=== PATIENT | male | born 1975 | race African-American/Black ===

== ENCOUNTER 2017-10-24 18:24 | Emergency (ER) | payer SELFPAY | END 2017-10-24 20:23 | disposition home or self-care (01) | LOC: ERS 18:24 | DX: S16.1XXA Strain of muscle, fascia and tendon at neck level, initial encounter (principal); V43.52XA Car driver injured in collision with other type car in traffic accident, initial encounter | CPT/HCPCS: 99283 ==

== ENCOUNTER 2018-06-22 03:51 | Emergency (ER) | payer OTHER, SELFPAY ==
[2018-06-22] MEDS ORDERED: Lidocaine 1% PF 5 ML VIAL ONE ×2 (04:17→04:48)
[2018-06-22] MEDS ORDERED: Adacel (T-DAP) 0.5 ML VIAL ONE (04:46)
[2018-06-22] MEDS ORDERED: Bacitracin Zinc 1 Packet ONE (05:17)
[2018-06-22] MEDS ORDERED: Cephalexin 250 MG CAP ONE (05:42)
== END 2018-06-22 05:46 | disposition home or self-care (01) ==
LOC: ERS 03:51
DX: S61.412A Laceration without foreign body of left hand, initial encounter (principal); W26.8XXA Contact with other sharp object(s), not elsewhere classified, initial encounter
CPT/HCPCS: 12002; 90471; 90715; J2001

== ENCOUNTER 2019-01-22 18:46 | Emergency (ER) | payer SELFPAY ==
[2019-01-22 19:18] LABS: Amphetamine Not Detected (NotDetected); Barbiturates Screen Not Detected (NotDetected); Benzodiazepine Screen Not Detected (NotDetected); Cocaine Metabolite Screen Not Detected (NotDetected); Medtox Control Line Valid? VALID (VALID); Medtox Reader # READER 4; Methadone Not Detected (NotDetected); Methamphetamine Not Detected (NotDetected); Opiate Screen Not Detected (NotDetected); Oxycodone Screen Not Detected (NotDetected); Phencyclidine (PCP) Not Detected (NotDetected); THC/Cannabinoid Screen Not Detected (NotDetected); Tricyclic Screen Not Detected (NotDetected)
[2019-01-22] MEDS ORDERED: Lidocaine 1% (PF) 30 ML VIAL ONE (20:56)
--- NOTE | 2019-01-22 21:11 | CT ---
CT OF BRAIN PERFORMED WITHOUT CONTRAST ENHANCEMENT: 01/22/19 HISTORY: Head injury. The ventricular and cisternal system is within normal limits. There is no signs of intracerebral hemo rrhage or extra-axial fluid collections. Mastoid air cells and visualized sinuses appear clear. IMPRESSION: No acute intracranial abnormalities. POS: MOE
[2019-01-22] MEDS ORDERED: Bacitracin Zinc 1 Packet ONE (21:32)
--- NOTE | 2019-01-22 21:45 | CT ---
CT OF CERVICAL SPINE PERFORMED WITHOUT CONTRAST ENHANCEMENT: 01/22/19 HISTORY: Neck injury. Vertebral bodies are normal in height. Disc spaces are well preserved and the facets are all in gabriella l alignment. There is no evidence of any canal or foraminal stenosis. There is no CT evidence for fra cture. Lung apices are clear. IMPRESSION: No CT evidence of fracture of the cervical spine. POS: MOE
== END 2019-01-22 22:00 | disposition home or self-care (01) ==
LOC: ERS 18:46
DX: S21.112A Laceration without foreign body of left front wall of thorax without penetration into thoracic cavity, initial encounter (principal); S01.81XA Laceration without foreign body of other part of head, initial encounter; F10.129 Alcohol abuse with intoxication, unspecified; Y04.0XXA Assault by unarmed brawl or fight, initial encounter
CPT/HCPCS: 12001; 12011; 70450; 72125; 80306; 96360; 96361; J2001

== ENCOUNTER 2020-09-17 21:26 | Inpatient (IN) | payer SELFPAY ==
[~2020-09-17 21:26] MED LIST: Iopamidol-370 76% 500 ML 1 ML ONE
--- NOTE | 2020-09-17 22:02 | RAD ---
EXAM: CHEST ONE VIEW HISTORY: Chest pain. Anemia. COMPARISON: 09/11/2017 FINDINGS: The cardiac silhouette and pulmonary vasculature are within normal limits. The lungs are clear. Mild left convex curvature thoracic spine is present which is stable compared to prior exam. IMPRESSION: No acute cardiopulmonary process.
[2020-09-17 22:27] LABS: Hemoglobin 14.5 g/dL (14.0-18.0); Mean Corpuscular Hemoglobin 33.3 pg (27.0-31.0); Red Blood Cell (RBC) Count 4.35 mill/uL (4.70-6.10); White Blood Cell (WBC) Count 3.5 thou/uL (4.8-10.8)
[2020-09-17 22:34] LABS: ALT (SGPT) 49 U/L (8-55); AST (SGOT) 148 U/L (5-34); Albumin 3.9 g/dL (3.5-5.0); Alkaline Phosphatase 108 U/L (40-110); Anion Gap 18 mmol/L (10-20); BUN (Urea Nitrogen) 5 mg/dL (8.9-20.6); Bilirubin, Total 0.7 mg/dL (0.2-1.2); Calc. Creatinine Clearance 0 mL/min (70-130); Calcium 8.8 mg/dL (7.8-10.44); Carbon Dioxide 26 mmol/L (22-29); Chloride 101 mmol/L (98-107); Estimated GFR-MDRD Greater than 90; Glucose 92 mg/dL (70-105); Lipase 28 U/L (8-78); Potassium 4.1 mmol/L (3.5-5.1); Protein, Total 7.9 g/dL (6.0-8.3); Sodium 141 mmol/L (136-145)
[2020-09-17 22:41] LABS: #Basophils 0.1 thou/uL (0.0-0.2); #Lymphocytes 1.5 thou/uL (1.20-3.40); #Monocytes 0.3 thou/uL (0.11-0.59); #Neutrophils 1.6 thou/uL (1.40-6.50); %Basophils 2.7 % (0.0-1.0); %Eosinophils 0.4 % (0.0-10.0); %Lymphocytes 42.2 % (21.0-51.0); %Monocytes 8.9 % (0.0-10.0); %Neutrophils 45.9 % (42.0-75.0); Mean Platelet Volume 8.5 fL (7.4-10.4); Platelet Count 111 thou/uL (130-400); Platelet Morphology Comment Appears Decreased
[2020-09-17] MEDS ORDERED: Lidocaine Viscous Sol 2% 15 ml UD Cup ONE (23:19)
[2020-09-17] MEDS ORDERED: Mag-Al 1200 mg/1200 mg/30 ML UDCUP ONE (23:19)
--- NOTE | 2020-09-17 23:52 | CT ---
CT ANGIOGRAM THORAX WITH IV CONTRAST AND 3-D RECONSTRUCTIONS CLINICAL INDICATION: Chest pain and tachycardia. COMPARISON: None FINDINGS: Pulmonary arteries: No filling defects are seen in the pulmonary arteries to suggest a pulmonary embo russ. Aorta: The aorta is normal in caliber without evidence of an aortic dissection. Lungs: Clear without evidence of consolidation or pleural effusion. Mediastinum: There is no evidence of lymphadenopathy. Heart is at the upper limits of normal in size. Thyroid gland: Very tiny subcentimeter nodules left lobe of thyroid gland. Small to characterize. Osseous structures: No suspicious lytic or sclerotic osseous lesion. Chest wall: No abnormality visualized. Upper abdomen: Within normal limits for phase of imaging. IMPRESSION: 1. No CT evidence of a pulmonary embolus.
--- NOTE | 2020-09-18 01:39 | PDOC.HHP ---
Hospitalist HPI - History of Present Illness Chest pain History of Present Illness: Mr. Sanchez is a 45-year-old male with a past medical history of anemia, chronic GI bleeding who presents to the emergency room for chest pain. Patient reports that over the past week he has had intermittent chest pain. Describes the pain as a squeezing feeling that lasts a few minutes then disappears. Has noticed that his chest pain is worse when he exerts himself and improves with rest. He denies any shortness of breath, dizziness lightheadedness or vision changes during these episodes. He has never had any episodes like this before. He has no cardiac history, but does have a family history of heart disease in his aunts and uncles who have pacemakers. No heart disease in his parents. He denies any known exposure to Covid. In emergency room initial vital signs 120/84, 96, 114, 20, 99% on room air, 98.9. EKG showed normal sinus rhythm with nonspecific T wave inversions. Initial troponin 0 0.019. BNP 87.9. H/H 14.5/42.6, WBC 3.5. BUN/CR 5/0.79. Chest x-ray with no acute findings. Patient did undergo CT a chest which did not show any acute abnormalities or any evidence of pulmonary embolism. Patient received 325 mg of aspirin, sublingual nitro x3, and GI cocktail. Hospitalist ROS - Review of Systems Constitutional: denies: fever, chills, sweats, weakness, malaise, other Eyes: denies: pain, vision change, conjunctivae inflammation, eyelid inflammation, redness, other ENT: denies: ear pain, ear discharge, nose pain, nose discharge, nose congestion, mouth pain, mouth swelling, throat pain, throat swelling, other Respiratory: denies: cough, dry, shortness of breath, hemoptysis, SOB with excertion, pleuritic pain, sputum, wheezing, other Cardiovascular: reports: chest pain. denies: palpitations, orthopnea, paroxysmal noc. dyspnea, edema, light headedness, other Gastrointestinal: denies: nausea, vomiting, abdominal pain, diarrhea, constipation, melena, hematochezia, other Genitourinary: denies: dysuria, frequency, incontinence, hematuria, retention, other Musculoskeletal: denies: neck pain, shoulder pain, arm pain, back pain, hand pain, leg pain, foot pain, other Skin: denies: rash, lesions, osmani, bruising, other Neurological: denies: weakness, numbness, incoordination, change in speech, confusion, seizures, other - Medication Medications: Patient takes home iron supplements No known allergies Hospitalist History - Past Medical History Other Medical History: Past medical history includes Anemia GI bleedingpatient reports this is chronic and has had 2 colonoscopies - Past Surgical History Other Surgical History: No past surgical history - Family History Other Family History: Family history significant for father with colon cancer Uncle with cardiac disease - Social History Smoking Status: Never smoker Alcohol: reports: Occassional Drugs: reports: none (Patient denies drug use, however does report that his urine was once positive for cocaine) Living Situation: With Family Activity level: independent ambulation - Exam General Appearance: NAD, awake alert Eye: PERRL, anicteric sclera ENT: normocephalic atraumatic, no oropharyngeal lesions, moist mucosa Neck: supple, symmetric, no JVD, no thyromegaly, no lymphadenopathy, no carotid bruit Heart: RRR, no murmur, no gallops, no rubs, normal peripheral pulses Respiratory: CTAB, no wheezes, no rales, no ronchi, normal chest expansion, no tachypnea, normal percussion Gastrointestinal: soft, non-tender, non-distended, normal bowel sounds, no palpable masses, no hepatomegaly, no splenomegaly, no bruit Extremities: no cyanosis, no clubbing, no edema Skin: normal turgor, no lesions, no rashes Neurological: cranial nerve grossly intact, normal sensation to touch, no weakness, no focal deficits, no new deficit Musculoskeletal: normal tone, normal strength, no muscle wasting Psychiatric: normal affect, normal behavior, A&O x 3 Hospitalist Results - Labs Result Diagrams: 09/17/20 22:04 09/17/20 22:04 Lab results: WBC 3.5 thou/uL (4.8-10.8) L 09/17/20 22:04 Hgb 14.5 g/dL (14.0-18.0) 09/17/20 22:04 Hct 42.6 % (42.0-52.0) 09/17/20 22:04 MCV 98.0 fL (78.0-98.0) 09/17/20 22:04 Plt Count 111 thou/uL (130-400) L 09/17/20 22:04 Neutrophils % 45.9 % (42.0-75.0) 09/17/20 22:04 Sodium 141 mmol/L (136-145) 09/17/20 22:04 Potassium 4.1 mmol/L (3.5-5.1) 09/17/20 22:04 Chloride 101 mmol/L (98-107) 09/17/20 22:04 Carbon Dioxide 26 mmol/L (22-29) 09/17/20 22:04 BUN 5 mg/dL (8.9-20.6) L 09/17/20 22:04 Creatinine 0.79 mg/dL (0.7-1.3) 09/17/20 22:04 Glucose 92 mg/dL (70-105) 09/17/20 22:04 Calcium 8.8 mg/dL (7.8-10.44) 09/17/20 22:04 Total Bilirubin 0.7 mg/dL (0.2-1.2) 09/17/20 22:04 AST 148 U/L (5-34) H 09/17/20 22:04 ALT 49 U/L (8-55) 09/17/20 22:04 Alkaline Phosphatase 108 U/L (40-110) 09/17/20 22:04 Troponin I 0.019 ng/mL (< 0.028) 09/17/20 22:04 B-Natriuretic Peptide 87.9 pg/mL (0-100) 09/17/20 22:04 Serum Total Protein 7.9 g/dL (6.0-8.3) 09/17/20 22:04 Albumin 3.9 g/dL (3.5-5.0) 09/17/20 22:04 Lipase 28 U/L (8-78) 09/17/20 22:04 Hospitalist H&P A/P - Plan Plan: Chest pain 45-year-old male with possible history of anemia who presents with 1 week of intermittent chest pain lasting minutes. EKG with T wave inversions. Initial troponin 0 0.019. CTA chest negative for pulmonary embolism. Patient received 325mg of aspirin in the emergency room along with a GI cocktail and nitro. Patient reports that the GI cocktail mildly improved his symptoms. Denies any chest pain on my exam. Will admit for chest pain rule out. Plan Trend troponin ASA, nitro as needed Telemetry monitoring TSH, magnesium N.p.o., consider stress testing Urine tox screen Lipid panel, hemoglobin A1c History of anemia Patient reports history of iron deficiency anemia, along with chronic GI bleeding.he has undergone 2 colonoscopies previously for. Patient reports his stools are sometimes dark sometimes with streaks of bright red blood. Has seen a GI doctor for this. H&H on presentation stable at 14.5/42.6. Patient however currently does not have a primary care provider. Recommended the patient seek care at the [facility] since he is uninsured. Plan Outpatient follow-up with [facility] DVT prophylaxisSCDs Full code Case discussed with attending physician Dr. Srinivasan.
[2020-09-18 01:40] LABS: Troponin I 0.033 ng/mL (< 0.028)
[2020-09-18] MEDS ORDERED: Nitroglycerin 0.4 MG TAB (25 Tab Bottle) SL PRN (01:47)
[2020-09-18 04:53] LABS: Hemoglobin A1c 4.9 % (4.0-6.0)
[2020-09-18 05:07] LABS: Cardiac Risk 1.8 (Less than 4.5)
[2020-09-18 05:11] LABS: Troponin I 0.027 ng/mL (< 0.028)
[2020-09-18] MEDS ORDERED: Aspirin Chewable 81 MG TAB ONE (09:17)
[2020-09-18] MEDS: Aspirin 81 mg Enteric Coated Tablet PO SCH (09:24)
[2020-09-18 15:32] LABS: SARS-CoV-2 MS2 Positive; SARS-CoV-2 N Gene Negative; SARS-CoV-2 S Gene Negative; SARS-CoV-2 by NAA Not Detected (NotDetected); SARS-CoV-2 orf1ab Negative
--- NOTE | 2020-09-18 16:54 | PDOC.BPN ---
- Brief Progress Note Encounter Date: 09/18/20 Encounter Time: 16:52 Ms. Sanchez is a 45-year-old patient who presented to the hospital with chest pain. There was some concern that he has acute coronary syndrome and he was hospitalized for further treatment. Apparently there is a very strong family history of coronary disease with his mother and uncle both having some heart issues. He was unable to recall the age that there is a 5-day OH event. At any rate he is admitted to the hospital for further evaluation. At the minimum we will get a Cardiolite stress test. Should he rule out he can safely be discharged tomorrow. Consider cardiology consultation if the stress test was abnormal.
[2020-09-18 17:36] VITALS: BMI 17.2
[2020-09-18 23:13] LABS: Amphetamine Not Detected (NotDetected); Barbiturates Screen Not Detected (NotDetected); Benzodiazepine Screen Not Detected (NotDetected); Cocaine Metabolite Screen Detected (NotDetected); Medtox Control Line Valid? VALID (VALID); Medtox Reader # READER 4; Methadone Not Detected (NotDetected); Methamphetamine Not Detected (NotDetected); Opiate Screen Not Detected (NotDetected); Oxycodone Screen Not Detected (NotDetected); Phencyclidine (PCP) Not Detected (NotDetected); THC/Cannabinoid Screen Not Detected (NotDetected); Tricyclic Screen Not Detected (NotDetected)
[2020-09-19 04:16] LABS: Anion Gap 14 mmol/L (10-20); BUN (Urea Nitrogen) 7 mg/dL (8.9-20.6); Calc. Creatinine Clearance 105 mL/min (70-130); Calcium 8.9 mg/dL (7.8-10.44); Carbon Dioxide 26 mmol/L (22-29); Chloride 102 mmol/L (98-107); Estimated GFR-MDRD Greater than 90; Glucose 99 mg/dL (70-105); Potassium 3.8 mmol/L (3.5-5.1); Sodium 138 mmol/L (136-145)
[2020-09-19 04:46] LABS: Band 2 % (5-11); Hemoglobin 12.8 g/dL (14.0-18.0); Lymphocytes 42 % (21-51); MDiff Complete? YES; Mean Corpuscular HGB CONC 33.9 g/dL (32.0-36.0); Mean Corpuscular Hemoglobin 33.5 pg (27.0-31.0); Mean Corpuscular Volume 98.9 fL (78.0-98.0); Mean Platelet Volume 10.6 fL (7.4-10.4); Monocytes 4 % (0-10); Neutrophil 52 % (42-75); Platelet Count 63 thou/uL (130-400); Platelet Morphology Comment Appears Decreased; RBC Distribution Width 11.9 % (11.5-14.5); Red Blood Cell (RBC) Count 3.82 mill/uL (4.70-6.10)
[2020-09-19] MEDS: Aspirin 81 mg Enteric Coated Tablet PO SCH (08:45)
[2020-09-19] MEDS ORDERED: ADENOSINE 60 MG/20 ML VIAL ONE (13:12)
--- NOTE | 2020-09-19 13:16 | NM ---
NUCLEAR MEDICINE CARDIAC MYOCARDIAL PERFUSION SPECT EJECTION FRACTION STUDY WALL MOTION CINE: DATE: 09/19/2020 HISTORY: 45-year-old male with family history of coronary artery disease presents with chest pain TECHNIQUE: Number of days: 1 Rest study: Technetium 99m-sestamibi (Cardiolite) dose: 10.1 mCi Pharmacologic stress: Adenosine dose: 31.9 mg Stress study: Technetium 99m-sestamibi (Cardiolite) dose: 27.4 mCi FINDINGS: CARDIAC (MYOCARDIAL PERFUSION) SPECT There are no reversible myocardial perfusion defects. EJECTION FRACTION STUDY Left ventricular EF = 31 % WALL MOTION CINE There is global hypokinesis. There is no focal asymmetric wall motion abnormality. IMPRESSION: 1. No evidence of reversible ischemia. 2. Low left ventricular ejection fraction of 31%.
--- NOTE | 2020-09-19 14:53 | PDOC.HOSPP ---
- Subjective Encounter Date: 09/19/20 Encounter Time: 14:52 Subjective: Mr. Sanchez was seen today in follow-up of chest pain, and also found to be anemic. He says he feels fine. He denies chest pain now. - Objective Vital Signs & Weight: Vital Signs (12 hours) Temp Pulse Resp BP Pulse Ox 09/19/20 12:30 98.9 F 80 18 160/86 H 100 09/19/20 08:20 98.8 F 77 18 157/72 H 100 09/19/20 03:44 98.4 F 65 18 137/77 100 Weight Admit Weight 126 lb 11.2 oz Weight 126 lb 11.2 oz I&O: 09/18/20 09/19/20 09/20/20 06:59 06:59 06:59 Intake Total 387 Balance 387 Result Diagrams: 09/19/20 03:33 09/19/20 03:33 Hospitalist ROS - Medication Medications: Active Medications Generic Name Dose Route Start Last Admin Trade Name Freq PRN Reason Stop Dose Admin Aspirin 81 mg 09/18/20 09:00 09/19/20 08:45 Aspirin 81 Mg Enteric Coated Tablet PO Not Given DAILY FLY - Exam Eye: PERRL, anicteric sclera Heart: RRR, no murmur, no gallops, no rubs, normal peripheral pulses Respiratory: CTAB, no wheezes, no rales, no ronchi, normal chest expansion, no tachypnea, normal percussion Gastrointestinal: soft, non-tender, non-distended, normal bowel sounds, no palpable masses, no hepatomegaly Extremities: no cyanosis, no edema Hosp A/P (1) Chest pain Code(s): R07.9 - CHEST PAIN, UNSPECIFIED Status: Acute (2) Cocaine abuse Code(s): F14.10 - COCAINE ABUSE, UNCOMPLICATED Status: Acute (3) Pancytopenia Code(s): D61.818 - OTHER PANCYTOPENIA Status: Acute (4) GI bleed Code(s): K92.2 - GASTROINTESTINAL HEMORRHAGE, UNSPECIFIED Status: Chronic - Plan * Chest pain- ? etiology . May be related to cocaine abuse * Stress test results noted. He had global hypokinesis, and a low EF- Echo has been ordered * Pancytopneia- ? etiology- will check Hepatitis panel, HIV and B12, Folic acid. He may ultimately need Hematology evaluation and even boen marrow aspirate. * Chronic GI - Bleed- will defer work-up to the out patinet setting given the chronicity of the symptom
[2020-09-19 15:39] LABS: Iron 235 ug/dL (65-175); Iron Binding Capacity, Total 250 mcg/dL (261-462)
[2020-09-19 15:59] LABS: HBCM Index 0.08 S/CO (0-0.79); HBSAg Index 0.26 S/CO (0-0.99); HIV (1/2) Antibody/Antigen Non-Reactive (NonReactive); HIV 1/2 INDEX 0.17 S/CO (<1.00); Hep A IgM AB Non-Reactive (NonReactive); Hep A IgM S/CO 0.18 S/CO (0-0.79); Hep B Surf Ag Non-Reactive S/CO (NonReactive); Hep C IgG Ab Non-Reactive (NonReactive); Hep C Index 0.08 S/CO (0-0.79); Hepatitis B Core IgM Abs Non-Reactive (NonReactive)
[2020-09-19 16:09] LABS: Ferritin 187.49 ng/mL (22-322)
[2020-09-19 16:19] LABS: MONO NEGATIVE CONTROL ZONE White (Negative) (White); MONO POSITIVE CONTROL Pink Line (Positive) (PINK/RED); Mononucleosis NEGATIVE (NEGATIVE)
[2020-09-20] MEDS ORDERED: Communication Order-Pharmacy FS SCH (09:00)
[2020-09-20] MEDS ORDERED: Spironolactone 25 MG TAB PO SCH (09:00)
[2020-09-20] MEDS ORDERED: Carvedilol 6.25 MG TAB PO SCH (09:00)
[2020-09-20] MEDS: Furosemide 20 MG TAB PO SCH (09:30)
[2020-09-20] MEDS: Lisinopril 2.5 MG TAB PO SCH (09:31)
[2020-09-20] MEDS: Aspirin 81 mg Enteric Coated Tablet PO SCH (09:35)
--- NOTE | 2020-09-20 11:54 | CON ---
DATE OF CONSULTATION: HISTORY OF PRESENT ILLNESS: Rhonda Sanchez is a 45-year-old black male, who came to the emergency room on September 17 complaining of one week of intermittent chest pain. He describes this as somewhat of his squeezing is feeling in his chest, that would last only a few seconds. He denied any shortness of breath, nausea, vomiting, or diaphoresis with this. Cardiac enzymes were unremarkable and he underwent Lexiscan Cardiolite testing, which revealed no evidence of ischemia. However, his ejection fraction on the study was 31%. Echocardiogram confirmed his poor ejection fraction. He denies any history of dyspnea on exertion, PND, orthopnea, or leg edema. PAST MEDICAL HISTORY: No history of hypertension, diabetes, or hypercholesterolemia. He does have history of hemorrhoids, continues to have problems with hemorrhoidal bleeding. MEDICATIONS: Ferrous gluconate 240 b.i.d. ALLERGIES: NONE. SOCIAL HISTORY: He does not smoke. He drinks up to two six packs per day, but I suspect he drinks more than that. FAMILY HISTORY: Positive for heart disease. REVIEW OF SYSTEMS: A 10-point review of systems otherwise unremarkable. PHYSICAL EXAMINATION: VITAL SIGNS: Blood pressure 147/92 and pulse 73. HEENT: PERRL. NECK: Supple. CHEST: Clear. CARDIAC: S1 and S2 normal without any S3, S4, or murmurs. Carotid upstroke is normal without bruits. ABDOMEN: Normal bowel sounds without tenderness or organomegaly. EXTREMITIES: Revealed no clubbing, cyanosis, or edema. NEUROLOGIC: Grossly intact. SKIN: Warm and dry. LABORATORY DATA: EKG reveals normal sinus rhythm with anterolateral T-wave inversion. Echocardiogram revealed ejection fraction of 25% to 30% with mild mitral regurgitation and mild tricuspid regurgitation. Hemoglobin 12.8, hematocrit 37.8, white count 3000, and platelets 63,000. Sodium 138, potassium 3.8, chloride 102, carbon dioxide 26, BUN 7, and creatinine 0.74. Iron 235, TIBC 250, and ferritin 187.4. TSH is normal. B12 and folate are normal. Magnesium is normal. Cholesterol 186, triglycerides 93, HDL 105, LDL 62, AST 148, and ALT 49. IMPRESSION: 1. 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 2. Atypical chest discomfort. 3. Positive family history. 4. Possible hypertension with frequent systolics in the 150s-160s since admission. 5. EtOH abuse. 6. Elevated LFTs, probably due to alcohol. 7. Thrombocytopenia, Leukopenia. PLAN: Long detail discussion was held with the patient. He will be started on carvedilol as well as furosemide and probably have addition of KANDICE inhibitor. Without insurance, I doubt that he can afford Entresto. Also, he was instructed that he should never drink alcohol again because this cardiomyopathy certainly may be related to alcohol. Also with his severe left ventricular dysfunction, despite his normal Cardiolite, his coronary anatomy should be known with 100% certainty. Therefore, he will undergo cardiac catheterization in the morning. Risks of this were discussed with the patient including , myocardial infarction, dye reaction, vascular injury, CVA, transfusion, limb loss, renal loss, etc. Also risk of intervention with PTCA and stent placement were discussed including , myocardial infarction, emergent CABG, restenosis, stent thrombosis, vessel perforation, etc. With his continued hemorrhoidal bleeding, I would place a bare-metal stent if needed. We also discussed that if his ejection fraction does not improve, that he probably will need to have a defibrillator placed in 3 months. During the interim, it was recommended that we proceed with trying to get a LifeVest. Job ID: [id number] [facility]PITALMoh[facility]
[2020-09-20 12:43] LABS: Amphetamine Not Detected (NotDetected); Barbiturates Screen Not Detected (NotDetected); Benzodiazepine Screen Not Detected (NotDetected); Cocaine Metabolite Screen Not Detected (NotDetected); Medtox Control Line Valid? VALID (VALID); Medtox Reader # READER 4; Methadone Not Detected (NotDetected); Methamphetamine Not Detected (NotDetected); Opiate Screen Not Detected (NotDetected); Oxycodone Screen Not Detected (NotDetected); Phencyclidine (PCP) Not Detected (NotDetected); THC/Cannabinoid Screen Not Detected (NotDetected); Tricyclic Screen Not Detected (NotDetected)
[2020-09-20 14:02] LABS: #Lymphocytes 0.7 thou/uL (1.20-3.40); #Monocytes 0.4 thou/uL (0.11-0.59); #Neutrophils 1.9 thou/uL (1.40-6.50); %Basophils 0.8 % (0.0-1.0); %Eosinophils 0.6 % (0.0-10.0); %Neutrophils 63.6 % (42.0-75.0); Hemoglobin 15.5 g/dL (14.0-18.0); Mean Corpuscular HGB CONC 33.7 g/dL (32.0-36.0); Mean Corpuscular Hemoglobin 33.5 pg (27.0-31.0); Mean Corpuscular Volume 99.4 fL (78.0-98.0); Mean Platelet Volume 9.4 fL (7.4-10.4); Platelet Count 77 thou/uL (130-400); RBC Distribution Width 11.6 % (11.5-14.5); Red Blood Cell (RBC) Count 4.64 mill/uL (4.70-6.10)
[2020-09-20 14:15] LABS: ALT (SGPT) 84 U/L (8-55); AST (SGOT) 275 U/L (5-34); Albumin 4.1 g/dL (3.5-5.0); Alkaline Phosphatase 108 U/L (40-110); Bilirubin, Direct 0.5 mg/dL (0.1-0.3); Protein, Total 8.1 g/dL (6.0-8.3)
--- NOTE | 2020-09-20 15:22 | PDOC.HOSPP ---
- Subjective Encounter Date: 09/20/20 Encounter Time: 15:21 Subjective: Mr. Sanchez was seen today in follow-up of CHF exacerbation. He does not have any complaints today. He denies feeling short of breath. - Objective Vital Signs & Weight: Vital Signs (12 hours) Temp Pulse Resp BP BP Pulse Ox 09/20/20 12:45 98.4 F 83 16 120/87 100 09/20/20 09:31 73 147/92 H 09/20/20 09:30 147/92 H 09/20/20 08:00 97.9 F 73 16 147/92 H 99 09/20/20 04:00 98.3 F 68 134/76 100 Weight Admit Weight 126 lb 11.2 oz Weight 126 lb 11.2 oz I&O: 09/19/20 09/20/20 09/21/20 06:59 06:59 06:59 Intake Total 387 1170 240 Balance 387 1170 240 Result Diagrams: 09/20/20 13:44 09/19/20 03:33 Hospitalist ROS - Medication Medications: Active Medications Generic Name Dose Route Start Last Admin Trade Name Freq PRN Reason Stop Dose Admin Aspirin 81 mg 09/18/20 09:00 09/20/20 09:35 Aspirin 81 Mg Enteric Coated Tablet PO 81 mg DAILY FLY Administration Furosemide 20 mg 09/20/20 09:00 09/20/20 09:30 Furosemide 20 Mg Tab PO 20 mg DAILY FLY Administration Lisinopril 2.5 mg 09/20/20 09:00 09/20/20 09:31 Lisinopril 2.5 Mg Tab PO 2.5 mg DAILY FLY Administration - Exam Eye: PERRL, anicteric sclera Heart: RRR, no murmur, no gallops, no rubs, normal peripheral pulses Respiratory: CTAB, no wheezes, no rales, no ronchi, normal chest expansion, no tachypnea, normal percussion Gastrointestinal: soft, non-distended Hosp A/P (1) Chest pain Code(s): R07.9 - CHEST PAIN, UNSPECIFIED Status: Acute (2) Cocaine abuse Code(s): F14.10 - COCAINE ABUSE, UNCOMPLICATED Status: Acute (3) Pancytopenia Code(s): D61.818 - OTHER PANCYTOPENIA Status: Acute (4) GI bleed Code(s): K92.2 - GASTROINTESTINAL HEMORRHAGE, UNSPECIFIED Status: Chronic (5) Alcohol abuse Code(s): F10.10 - ALCOHOL ABUSE, UNCOMPLICATED Status: Chronic - Plan * Chest pain- ? etiology . May be related to cocaine abuse * New Systolic heart failure- discussed with the patient- plan is for cardiac cath tomorrow * ETOH abuse- discussed with the patient- he said his last drink was on , before he came into the hospital. He admits to drinking about a 12 pack a day.- Will add an ASE protocol, and add thiamine and folic acid * Pancytopneia- This may be related to alcohol abuse - Hematology input appreciated * Chronic GI -Out patient work-up
[2020-09-20 16:35] LABS: ANA Symphony (Qualitative) Negative (Negative); ANA Symphony (Quantitative) 0.2 Ratio (< 0.7 Negative)
[2020-09-20 17:21] LABS: Anion Gap 13 mmol/L (10-20); BUN (Urea Nitrogen) 10 mg/dL (8.9-20.6); Calc. Creatinine Clearance 90 mL/min (70-130); Calcium 9.9 mg/dL (7.8-10.44); Carbon Dioxide 29 mmol/L (22-29); Chloride 98 mmol/L (98-107); Estimated GFR-MDRD Greater than 90; Glucose 97 mg/dL (70-105); Potassium 3.4 mmol/L (3.5-5.1); Sodium 137 mmol/L (136-145)
[2020-09-20] MEDS: Thiamine 100 MG TAB PO SCH (17:38)
[2020-09-20] MEDS: Carvedilol 3.125 MG TAB PO SCH (17:38)
[2020-09-20] MEDS: Folic Acid 1 MG TAB PO SCH (17:38)
--- NOTE | 2020-09-20 18:59 | CON ---
DATE OF CONSULTATION: REASON FOR CONSULTATION: Leukopenia and thrombocytopenia. HISTORY OF PRESENT ILLNESS: A 45-year-old male with history of anemia secondary to chronic GI bleed, presenting to the ER with chest pain and found to have leukopenia and worsening thrombocytopenia. The patient describes intermittent chest pain over the last week, which he had never had before and was worse with exertion and improved with rest. Denies any other problems including recent infections or illnesses and his chronic GI bleed is not any worse than normal. Since he had a colonoscopy years ago, but nothing recent and thinks he has a rectal prolapse. Denies ever being told he had low WBC or platelets in the past. His blood work shows WBC 3.5 on admission down to 3.0 yesterday, hemoglobin 14.5 to 12.8, and platelets 111 to 63. WBCs were as low as 4.2 seven years ago in 2012 and no blood work since then. He has not had thrombocytopenia before. His baseline hemoglobin is in 10.4 and 11.9 back in 2013 and is currently 12.8. He drinks 12-pack of beer or more daily. He denies cocaine use, though his tox screen does show cocaine in the urine and this test was negative last year, so unsure if this is a false positive or the patient is not being honest about his drug use. The patient has had an abnormal stress test and echocardiogram yesterday that showed an EF of 25% to 30%. The patient denies any history of autoimmune disease, but does have a cousin with lupus. REVIEW OF SYSTEMS: Ten-point review of systems is negative except as per HPI. PAST MEDICAL HISTORY: Anemia, alcohol abuse. PAST SURGICAL HISTORY: No surgeries. FAMILY HISTORY: Cardiac disease in an uncle, colon cancer in his father. SOCIAL HISTORY: No smoking, alcohol, heavy daily use of drugs. Denies illicit drug use. However, urine is positive for cocaine. PHYSICAL EXAMINATION: VITAL SIGNS: Temperature 97.9, pulse 73, respirations 16, saturating 99% on room air, blood pressure 147/92. GENERAL APPEARANCE: The patient is sitting up in bed, in no acute distress. HEENT: Normocephalic and atraumatic. NECK: Supple. No lymphadenopathy. HEART: S1, S2. Regular rhythm and rate. RESPIRATIONS: Clear to auscultation bilaterally. ABDOMEN: Nontender. EXTREMITIES: No edema. PSYCHIATRIC: Awake, alert, and oriented x3. LABORATORY DATA: White blood cells 3.0, hemoglobin 12.8, platelets 63. Sodium 138, potassium 3.8, BUN 7, creatinine 0.74. Iron 235, TIBC 250, ferritin 187, B12 of 666, folate 13.40, AST 148, ALT 49, bilirubin 0.7. IMAGING RESULTS: CTA of chest, no evidence of PE. Echocardiogram, EF 25% to 30%. ASSESSMENT AND PLAN: A 45-year-old male with newly diagnosed CHF on this admission, who presented with chest pain and found to be have leukopenia and thrombocytopenia. The patient's hemoglobin is 12.8 and normal is 12 to 16, although [facility] lab reports 14 to 18 which I disagree with. His hemoglobin is higher than it was in 2013 and is likely partly dilutional since receiving fluids on admission when it was 14.5. The patient is leukopenic at 3.5 to 3.0 and was 4.2 seven years ago. 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 His thrombocytopenia is new and has decreased by 50% upon admission, which is not consistent with JEANNE or a TMA. This could also be related to alcoholic suppression with a dilutional component, however, thrombocytopenia also can be acute due to cocaine toxicity for which he denies, although his urine test is positive. This could also explain his heart failure, but again this could also be related to alcohol. We will send SAMSON panel, flow cytometry, and PCR testing. I advised the patient to cut back on his alcohol intake, which may be necessary due to his heart failure anyway and could potentially allow recovery of his bone marrow. His AST is also much higher than ALT, which is suspicious of alcohol intake. We will follow up labs and follow up hospital course. Also, encouraged the patient to establish care with [facility] upon discharge. Thank you for the consult. Job ID: [id number] [facility]PITALMohit
[2020-09-21] MEDS ORDERED: Sodium Chloride 0.9% 1,000 ML IV SCH ×2 (06:00→14:38)
[2020-09-21] MEDS: Aspirin 81 mg Enteric Coated Tablet PO SCH (06:08)
[2020-09-21] MEDS: Lisinopril 2.5 MG TAB PO SCH (06:08)
[2020-09-21] MEDS: Carvedilol 3.125 MG TAB PO SCH ×2 (06:09→17:52)
[2020-09-21] MEDS: Furosemide 20 MG TAB PO SCH (09:19)
[2020-09-21] MEDS ORDERED: Iopamidol 370 76% 100 ML VIAL ONE (09:41)
[2020-09-21] MEDS ORDERED: Iopamidol 370 76% 50 ML VIAL FS ONE (09:41)
[2020-09-21] MEDS ORDERED: Lorazepam 2 MG/ML VIAL SLOW IVP PRN (12:07)
--- NOTE | 2020-09-21 12:10 | PDOC.HOSPP ---
- Subjective Encounter Date: 09/21/20 Encounter Time: 12:09 Subjective: Mr. Sanchez was seen today in follow-up of CHF exacerbation. He says he feels ok. He denies dyspnea, and denies chest pain. - Objective Vital Signs & Weight: Vital Signs (12 hours) Temp Pulse Resp BP BP Pulse Ox 09/21/20 11:07 119/72 09/21/20 11:04 98.7 F 88 16 119/72 100 09/21/20 09:17 75 118/65 09/21/20 08:05 98.0 F 77 14 110/66 110/66 100 09/21/20 06:08 79 140/80 09/21/20 04:00 140/80 09/21/20 03:49 98.4 F 79 16 140/80 95 Weight Admit Weight 126 lb 11.2 oz Weight 124 lb 14.4 oz I&O: 09/20/20 09/21/20 09/22/20 06:59 06:59 06:59 Intake Total 1170 1210 Balance 1170 1210 Result Diagrams: 09/20/20 13:44 09/20/20 16:53 Hospitalist ROS - Medication Medications: Active Medications Generic Name Dose Route Start Last Admin Trade Name Freq PRN Reason Stop Dose Admin Aspirin 81 mg 09/18/20 09:00 09/21/20 06:08 Aspirin 81 Mg Enteric Coated Tablet PO 81 mg DAILY FLY Administration Carvedilol 3.125 mg 09/20/20 17:00 09/21/20 06:09 Carvedilol 3.125 Mg Tab PO 3.125 mg BID-WM FLY Administration Folic Acid 1 mg 09/20/20 17:00 09/20/20 17:38 Folic Acid 1 Mg Tab PO 1 mg Q24HR FLY Administration Furosemide 20 mg 09/20/20 09:00 09/21/20 09:19 Furosemide 20 Mg Tab PO 20 mg DAILY FLY Administration Sodium Chloride 1,000 mls @ 100 mls/hr 09/21/20 06:00 09/21/20 06:09 Normal Saline 0.9% IV 1,000 mls .Q10H FLY Administration Lisinopril 2.5 mg 09/20/20 09:00 09/21/20 06:08 Lisinopril 2.5 Mg Tab PO 2.5 mg DAILY FLY Administration Thiamine HCl 100 mg 09/20/20 17:00 09/20/20 17:38 Thiamine 100 Mg Tab PO 100 mg Q24HR FLY Administration - Exam Eye: PERRL, anicteric sclera Heart: RRR, no murmur, no gallops, no rubs, normal peripheral pulses Respiratory: CTAB, no wheezes, no rales, no ronchi, normal chest expansion, no tachypnea Gastrointestinal: soft, non-tender, non-distended, normal bowel sounds, no palpable masses Extremities: no cyanosis, no edema Hosp A/P (1) Chest pain Code(s): R07.9 - CHEST PAIN, UNSPECIFIED Status: Acute (2) Cocaine abuse Code(s): F14.10 - COCAINE ABUSE, UNCOMPLICATED Status: Acute (3) Pancytopenia Code(s): D61.818 - OTHER PANCYTOPENIA Status: Acute (4) GI bleed Code(s): K92.2 - GASTROINTESTINAL HEMORRHAGE, UNSPECIFIED Status: Chronic (5) Alcohol abuse Code(s): F10.10 - ALCOHOL ABUSE, UNCOMPLICATED Status: Chronic - Plan * Chest pain- resolved * New Systolic heart failure- awaiting cardiac cath * ETOH abuse-Continue ASE protocol * Pancytopneia- Likely due to alcohol abuse * Chronic GI bleed -Out patient work-up
[2020-09-21] MEDS ORDERED: Lorazepam 2 MG/ML VIAL SLOW IVP SCH (12:15)
[2020-09-21 12:23] LABS: Ref Lab Test Ordered TCGR
[2020-09-21] MEDS ORDERED: Heparin 10,000 UNITS/ 10 ML VIAL ONE (13:35)
[2020-09-21] MEDS ORDERED: Fentanyl 100 MCG/2 ML VIAL ONE (14:05)
[2020-09-21] MEDS ORDERED: Midazolam HCl 2 mg/2 ml Vial ONE (14:05)
[2020-09-21] MEDS ORDERED: Protamine Sulfate 50 MG/5 ML VIAL ONE (14:20)
[2020-09-21] MEDS ORDERED: Sodium Chloride 0.9% 200 ML IV PRN (14:31)
[2020-09-21] MEDS ORDERED: Nitroglycerin 0.4 MG TAB (25 Tab Bottle) SL PRN (14:31)
[2020-09-21] MEDS ORDERED: Acetaminophen/Codeine 30-300mg Tablet PO PRN ×2 (14:31)
[2020-09-21 17:38] LABS: Parvovirus B19 IgG ABS 1.7 index (0.0-0.8); Parvovirus B19 IgM ABS 0.1 index (0.0-0.8)
[2020-09-21 17:40] LABS: #Lymphocytes 0.4 thou/uL (1.20-3.40); #Monocytes 0.5 thou/uL (0.11-0.59); #Neutrophils 4.6 thou/uL (1.40-6.50); %Basophils 0.7 % (0.0-1.0); %Eosinophils 0.5 % (0.0-10.0); %Lymphocytes 7.7 % (21.0-51.0); %Monocytes 8.9 % (0.0-10.0); %Neutrophils 82.3 % (42.0-75.0); Hemoglobin 14.1 g/dL (14.0-18.0); Mean Corpuscular HGB CONC 33.7 g/dL (32.0-36.0); Mean Corpuscular Hemoglobin 32.6 pg (27.0-31.0); Mean Corpuscular Volume 96.7 fL (78.0-98.0); Mean Platelet Volume 8.8 fL (7.4-10.4); Platelet Count 69 thou/uL (130-400); RBC Distribution Width 11.6 % (11.5-14.5); Red Blood Cell (RBC) Count 4.33 mill/uL (4.70-6.10); White Blood Cell (WBC) Count 5.6 thou/uL (4.8-10.8)
[2020-09-21 17:42] LABS: INR-International Normal Ratio 1.1; PTT 25.9 sec (22.9-36.1); Prothrombin Time 14.4 sec (12.0-14.7)
--- NOTE | 2020-09-21 17:56 | CT ---
CT abdomen and pelvis noncontrast HISTORY: Blood loss. Recent heart catheterization. Evaluate for retroperitoneal hemorrhage. FINDINGS: Contrast material within the urinary system is present from recent catheterization procedur e. No filling defects apparent. Lung bases are clear. Lack of contrast limits evaluation of the soft tissues. No gross solid organ abnormalities apparent. Occasional diverticula arise from the colon without adjacent inflammation. Ill-defined stranding is present around the right common iliac vessels at the level of the femoral he ad, extending inferiorly and superiorly, including along the right external iliac vessels. It measures up to 2.3 cm greatest AP diameter on the axial images. Patency of vessels is not evaluated o n noncontrast enhanced exam. IMPRESSION : Small amount of blood tracking along the right common femoral and external iliac vessels. Certainly n ot enough to account for hypotension or decreased blood count. Very mild diverticulosis. No evidence of diverticulitis.
[2020-09-21] MEDS: Thiamine 100 MG TAB PO SCH (17:57)
[2020-09-21] MEDS: Folic Acid 1 MG TAB PO SCH (17:57)
[2020-09-21] MEDS: Multivitamins, Adult 10 ML, Folic Acid 1 MG, Thiamine HCl 100 MG in Dextrose 5 %-0.45 %... IV SCH (18:13)
[2020-09-22] MEDS ORDERED: Acetaminophen 325 MG TAB PO PRN (04:19)
[2020-09-22 05:03] LABS: Lactic Acid 1.1 mmol/L (0.5-2.2)
--- NOTE | 2020-09-22 07:46 | PDOC.HOSPP ---
- Subjective Encounter Date: 09/22/20 Encounter Time: 08:00 Subjective: Mr. Sanchez was seen and examined today for CHF exacerbation. He stated he feels alright He slept well and is in no pain. He did endorse wake up several time to have 4-5 loose stools. He dnied any chest pain or dizziness. - Objective Vital Signs & Weight: Vital Signs (12 hours) Temp Pulse Resp BP BP Pulse Ox 09/22/20 05:59 100.1 F H 09/22/20 04:00 100.1 F H 81 16 107/57 L 107/57 L 98 09/22/20 00:00 110/65 09/21/20 20:00 137/76 99 Weight Admit Weight 126 lb 11.2 oz Weight 130 lb I&O: 09/21/20 09/22/20 09/23/20 06:59 06:59 06:59 Intake Total 1210 1910 Output Total 500 Balance 1210 1410 Result Diagrams: 09/22/20 09:03 09/22/20 09:03 Additional Labs: Accuchecks 09/21/20 17:17 POC Glucose 154 H Hospitalist ROS - Review of Systems Constitutional: denies: fever, chills Respiratory: denies: cough, shortness of breath Cardiovascular: denies: chest pain, palpitations Gastrointestinal: reports: other (endorsed 4-5 episodes of loose stools). denies: nausea, vomiting, diarrhea Musculoskeletal: denies: neck pain, shoulder pain, arm pain, back pain, hand pain, leg pain, foot pain Neurological: denies: weakness, numbness - Medication Medications: Active Medications Generic Name Dose Route Start Last Admin Trade Name Tina PRN Reason Stop Dose Admin Acetaminophen 650 mg 09/22/20 04:19 09/22/20 05:59 Acetaminophen 325 Mg Tab PO 650 mg Q6H PRN Administration Fever/Mild Pain Carvedilol 3.125 mg 09/20/20 17:00 09/21/20 17:52 Carvedilol 3.125 Mg Tab PO Not Given BID- FLY Folic Acid 1 mg 09/20/20 17:00 09/21/20 17:57 Folic Acid 1 Mg Tab PO 1 mg Q24HR FLY Administration Furosemide 20 mg 09/20/20 09:00 09/21/20 09:19 Furosemide 20 Mg Tab PO 20 mg DAILY FLY Administration Multivitamins 10 ml/ Folic 1,011.2 mls @ 125 mls/hr 09/21/20 18:00 09/21/20 18:13 Acid 1 mg/ Thiamine HCl 100 mg IV 1,011.2 mls / Dextrose/Sodium Chloride Q24HR FLY Administration Lisinopril 2.5 mg 09/20/20 09:00 09/21/20 06:08 Lisinopril 2.5 Mg Tab PO 2.5 mg DAILY FLY Administration Thiamine HCl 100 mg 09/20/20 17:00 09/21/20 17:57 Thiamine 100 Mg Tab PO 100 mg Q24HR FLY Administration - Exam General Appearance: NAD, awake alert ENT: normocephalic atraumatic Heart: RRR, no murmur, no gallops, no rubs Respiratory: CTAB, no wheezes, no rales, no ronchi Gastrointestinal: soft, non-tender, non-distended, normal bowel sounds Extremities: no edema Psychiatric: normal affect, normal behavior, A&O x 3 Hosp A/P (1) Chest pain Code(s): R07.9 - CHEST PAIN, UNSPECIFIED Status: Acute (2) Cocaine abuse Code(s): F14.10 - COCAINE ABUSE, UNCOMPLICATED Status: Acute (3) Pancytopenia Code(s): D61.818 - OTHER PANCYTOPENIA Status: Acute (4) GI bleed Code(s): K92.2 - GASTROINTESTINAL HEMORRHAGE, UNSPECIFIED Status: Chronic (5) Alcohol abuse Code(s): F10.10 - ALCOHOL ABUSE, UNCOMPLICATED Status: Chronic - Plan * Chest pain- resolved * New Systolic heart failure- followed by cardiology * ETOH abuse-Continue ASE protocol * Pancytopneia- Likely due to alcohol abuse * Chronic GI bleed -Out patient work-up * Consider discharging patient this afternoon: possible life vest * * Patient seen and examined and discussed with Mariana Valentino MS-3. He is much better, and back to baseline with regards to his mental status. He will be fitted for a Life Vest at home. He is stable for discharge home.
[2020-09-22] MEDS: Carvedilol 3.125 MG TAB PO SCH ×2 (08:21→16:30)
[2020-09-22] MEDS: Lisinopril 2.5 MG TAB PO SCH (08:21)
[2020-09-22] MEDS: Furosemide 20 MG TAB PO SCH (08:21)
[2020-09-22 09:54] LABS: ALT (SGPT) 145 U/L (8-55); AST (SGOT) 300 U/L (5-34); Albumin 3.4 g/dL (3.5-5.0); Alkaline Phosphatase 97 U/L (40-110); Anion Gap 12 mmol/L (10-20); BUN (Urea Nitrogen) 7 mg/dL (8.9-20.6); Bilirubin, Total 0.7 mg/dL (0.2-1.2); Calc. Creatinine Clearance 96 mL/min (70-130); Calcium 8.6 mg/dL (7.8-10.44); Carbon Dioxide 25 mmol/L (22-29); Chloride 101 mmol/L (98-107); Estimated GFR-MDRD Greater than 90; Globulin 3.4 g/dL (2.4-3.5); Glucose 108 mg/dL (70-105); Potassium 3.4 mmol/L (3.5-5.1); Protein, Total 6.8 g/dL (6.0-8.3); Sodium 135 mmol/L (136-145)
[2020-09-22 09:58] LABS: Band 1 % (5-11); Hemoglobin 13.1 g/dL (14.0-18.0); Lymphocytes 15 % (21-51); MDiff Complete? YES; Mean Corpuscular HGB CONC 34.2 g/dL (32.0-36.0); Mean Corpuscular Hemoglobin 33.4 pg (27.0-31.0); Mean Corpuscular Volume 97.8 fL (78.0-98.0); Mean Platelet Volume 9.1 fL (7.4-10.4); Monocytes 11 % (0-10); Neutrophil 64 % (42-75); Platelet Count 54 thou/uL (130-400); Platelet Morphology Comment Appears Decreased; Polychromasia SLIGHT = 2-3 cells (100X) (0-2/hpf); RBC Distribution Width 11.7 % (11.5-14.5); Reactive Lymphocytes 9 % (0-10); Red Blood Cell (RBC) Count 3.92 mill/uL (4.70-6.10); White Blood Cell (WBC) Count 2.3 thou/uL (4.8-10.8)
--- NOTE | 2020-09-22 10:10 | RAD ---
CHEST 1 VIEW: Date: 09/22/2020 INDICATION: History of fever and chest pain. COMPARISON: Prior exam dated 09/17/2020. FINDINGS: The lungs are clear. Heart size is normal. No pleural effusion or pneumothorax is grossly evident. Os seous structures are unchanged from the comparison. Thoracolumbar scoliosis is similar appearing. IMPRESSION: No acute abnormality. POS: BH
[2020-09-22 15:21] VITALS: BP 117/79; TEMP 98
[2020-09-22] MEDS: Folic Acid 1 MG TAB PO SCH (16:30)
[2020-09-22] MEDS: Thiamine 100 MG TAB PO SCH (16:31)
--- NOTE | 2020-09-22 18:25 | PDOC.DS.DS ---
Provider - Provider Date of Admission: 09/19/20 17:30 Date of Discharge: 09/22/20 Admitting Provider: Nhung Srinivasan MD Consultations: Cardiology, Oncology Primary Care Physician: NO PCP PROVIDER Course - Hospital Course Hospital Course: Mr. Sanchez is a 45-year-old gentleman that has a history of anemia as well as chronic GI bleed. He also has a history of heavy alcohol abuse in the past and current use as well. He presented to the emergency room with complaints of chest pain. He was evaluated in the emergency room and admitted to the hospital for ACS rule out. He had a nuclear stress test performed which showed global hypokinesis but no evidence of any reversible ischemia. His ejection fraction however was 31%. For this reason cardiology was consulted. He had an echocardiogram done to assess his ejection fraction more closely. The echocardiogram showed an ejection fraction of 25 to 30% as well as mild mitral regurgitation. He underwent cardiac catheterization which demonstrated normal coronary arteries however severe left ventricular dysfunction. 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 He was also found to have pancytopenia which was also felt to be due to alcohol induced suppression of his bone marrow. He had an HIV test as well as hepatitis screen parvovirus and Monospot test which were all negative. He was also evaluated by hematology during his hospital stay and flow cytometry sample was sent which was pending at the time of discharge. However it is felt that again the pancytopenia was likely alcohol related. Following the cardiac catheterization the patient had a small hematoma in the right groin for this reason a follow-up CT was done however it did not show any significant bleeding. Pressure was held for several hours and this symptom resolved. He also had a very mild but very short course of alcohol withdrawal symptoms. He was counseled extensively on the need to stop drinking. He feels that he can manage this on his own however we strongly urged him to seek organized professional care with regards to this. The patient is unfortunately uninsured and will need a LifeVest due to his low ejection fraction. He is in the process of trying to find family members that can supply a credit card for him to place a down payment on the LifeVest. He was given the contact information in order to schedule an outpatient fitting for the LifeVest. He was also given information for follow-up at low cost at the [facility] clinic as well as the [facility] clinic. He will also be evaluated for the DSRIP program as well. Procedures: CTA- Chest Stress Test Echocardiogram Cardiac Catherterization CT- Abdomen and Pelvis - Labs Lab Results: 09/22/20 09:03 09/22/20 09:03 Abnormal Lab Results - Last 48 hrs 09/19/20 15:05: Parvovirus B19 IgG Ab 1.7 H 09/21/20 17:29: RBC 4.33 L, Hct 41.8 L, MCH 32.6 H, Plt Count 69 L, Neutrophils % 82.3 H, Lymphocytes % 7.7 L, Lymphocytes # 0.4 L 09/22/20 09:03: Sodium 135 L, Potassium 3.4 L, BUN 7 L, AST 300 H, ALT 145 H, Albumin 3.4 L, Albumin/Globulin Ratio 1.0 L 09/22/20 09:03: WBC 2.3 L, RBC 3.92 L, Hgb 13.1 L, Hct 38.3 L, MCH 33.4 H, Plt Count 54 L, Band Neuts % (Manual) 1 L, Lymphocytes % (Manual) 15 L, Monocytes % (Manual) 11 H, Plt Morphology Comment Appears Decreased L - Physical Exam Vitals: Vital Signs (12 hours) Temp Pulse Pulse Pulse Resp BP BP 09/22/20 15:15 98 F 82 16 117/79 09/22/20 11:50 97.5 F L 82 16 110/64 09/22/20 10:52 97 80 107/59 L 09/22/20 08:05 98.3 F 77 16 110/59 L BP BP BP BP Pulse Ox Pulse Ox Pulse Ox 09/22/20 15:15 117/79 98 09/22/20 11:50 110/64 98 09/22/20 10:52 93/54 L 100 100 09/22/20 08:05 112/71 110/59 L 98 Weight Admit Weight 126 lb 11.2 oz Weight 130 lb Physical Exam: The patient was seen and examined on the day of discharge. Problem - Problem (1) Systolic heart failure Code(s): I50.20 - UNSPECIFIED SYSTOLIC (CONGESTIVE) HEART FAILURE Status: Acute (2) Chest pain Code(s): R07.9 - CHEST PAIN, UNSPECIFIED Status: Acute (3) Cocaine abuse Code(s): F14.10 - COCAINE ABUSE, UNCOMPLICATED Status: Acute (4) Pancytopenia Code(s): D61.818 - OTHER PANCYTOPENIA Status: Acute (5) GI bleed Code(s): K92.2 - GASTROINTESTINAL HEMORRHAGE, UNSPECIFIED Status: Chronic (6) Alcohol abuse Code(s): F10.10 - ALCOHOL ABUSE, UNCOMPLICATED Status: Chronic Plan - Discharge Medications Prescriptions: Carvedilol [Coreg] 3.125 mg PO BID-WM #60 tab Folic Acid [Folvite] 1 mg PO DAILY #30 tab Furosemide [Lasix] 20 mg PO DAILY #30 tab Thiamine 100 mg PO Q24HR #30 tab Lisinopril [Zestril] 2.5 mg PO DAILY #30 tab Home Medications: Medication Instructions Recorded Confirmed Type Ferrous Gluconate [Fergon] 240 mg PO BID 08/26/13 09/18/20 History Carvedilol [Coreg] 3.125 mg PO BID-WM #60 tab 09/22/20 Rx Folic Acid [Folvite] 1 mg PO DAILY #30 tab 09/22/20 Rx Furosemide [Lasix] 20 mg PO DAILY #30 tab 09/22/20 Rx Lisinopril [Zestril] 2.5 mg PO DAILY #30 tab 09/22/20 Rx Thiamine 100 mg PO Q24HR #30 tab 09/22/20 Rx Allergies: No Known Allergies Allergy (Verified 02/02/20 21:33) - Discharge Instructions Activity:: Activity as Tolerated - Follow up Plan Referrals: Cardiac Rehab - [facility] [Outside] - 7 Days (Your doctor has ordered outpatient cardiac rehab for you to begin within 1-2 weeks after you go home from the hospital. The location nearest to you is the [facility]. We will call you in 3-5 days to get you scheduled for your evaluation. If you do not receive a call, please reach out to them at [phone] and request an appointment.) Colleen Calle NP [[facility] Professional] - 09/25/20 10:15 am (Please remember to bring all medication bottles to clinic and all hospital discharge paperwork. ) Ventura Yen MD [Active] - 3-4 Weeks (Call office to schedule an appointment.) Disposition: HOME Quality - Care Measures CORE MEASURES:: N/A
[2020-09-22] MEDS: Multivitamins, Adult 10 ML, Folic Acid 1 MG, Thiamine HCl 100 MG in Dextrose 5 %-0.45 %... IV SCH (18:44)
== END 2020-09-22 19:03 | disposition home or self-care (01) | DRG 286 ==
LOC: ERS 21:26 → ERHOLD 23:23 → 2NO 09-18 16:42 → OBSVTOIN 09-19 17:30
PROVIDERS: ADMIT Internal Medicine; ATTEND Internal Medicine
PROC: B2111ZZ Fluoroscopy of Multiple Coronary Arteries using Low Osmolar Contrast (ICD-10-PCS; principal; 2020-09-21)
PROC: B2151ZZ Fluoroscopy of Left Heart using Low Osmolar Contrast (ICD-10-PCS; 2020-09-21)
PROC: 4A023N7 Measurement of Cardiac Sampling and Pressure, Left Heart, Percutaneous Approach (ICD-10-PCS; 2020-09-21)
DX: I42.8 Other cardiomyopathies (principal); I50.23 Acute on chronic systolic (congestive) heart failure; D61.818 Other pancytopenia; K92.2 Gastrointestinal hemorrhage, unspecified; R07.9 Chest pain, unspecified; F14.10 Cocaine abuse, uncomplicated; D69.6 Thrombocytopenia, unspecified; D72.819 Decreased white blood cell count, unspecified; R79.89 Other specified abnormal findings of blood chemistry; F10.10 Alcohol abuse, uncomplicated
CPT/HCPCS: 36415; 36416; 71045; 71275; 74176; 78452; 80048; 80053; 80061; 80074; 80076; 80306; 82607; 82728; 82746; 83036; 83540; 83550; 83605; 83690; 83735; 83880; 84443; 84484; 85025; 85347; 85610; 85730; 86038; 86225; 86308; 86747; 87389; 87635; 88184; 93005; 93017; 93306; 93458; 93798; 94760; 99152; A9500; G0378; J0153; J1644; J2060; J2250; J2720; J3010; J3411; J7042; Q9967; U0003

== ENCOUNTER 2021-02-19 10:29 | Outpatient (CLI) | payer OTHER ==
[2021-02-19 11:46] LABS: Hemoglobin 13.9 g/dL (13.5-17.5); Mean Corpuscular HGB CONC 33.5 g/dL (32.0-36.0); Mean Corpuscular Hemoglobin 29.8 pg (27.0-33.0); Mean Corpuscular Volume 89.1 fl (81.2-95.1); Mean Platelet Volume 9.5 fl (7.4-10.4); Platelet Count 229 10x3/uL (150-450); RBC Distribution Width 13.6 % (11.5-14.5); Red Blood Cell (RBC) Count 4.66 10x6/uL (4.32-5.72); White Blood Cell (WBC) Count 3.6 10x3/uL (3.5-10.5)
[2021-02-19 12:04] LABS: INR-International Normal Ratio 1.1; PTT 28.4 sec (22.0-33.0)
[2021-02-19 12:13] LABS: Anion Gap 18 mmol/L (10-20); BUN (Urea Nitrogen) 6 mg/dL (8.9-20.6); Calc. Creatinine Clearance 0 mL/min (70-130); Calcium 8.8 mg/dL (7.8-10.44); Carbon Dioxide 29 mmol/L (22-29); Chloride 100 mmol/L (98-107); Glucose 95 mg/dL (70-105); Potassium 3.6 mmol/L (3.5-5.1); Sodium 143 mmol/L (136-145)
[2021-02-19 17:57] LABS: SARS-CoV-2 PCR by NAA Not Detected (NotDetected)
== END 2021-02-19 10:30 | disposition home or self-care (01) ==
LOC: LABBT 10:29
PROVIDERS: ATTEND Internal Medicine Cardiovascular Disease
DX: Z01.818 Encounter for other preprocedural examination (principal); I50.9 Heart failure, unspecified; Z20.822 Contact with and (suspected) exposure to COVID-19
CPT/HCPCS: 80048; 85027; 85610; 85730; 87635; 93005; 93010; U0003; U0005

== ENCOUNTER 2021-02-24 06:08 | Day surgery (SDC) | payer OTHER ==
[2021-02-23 10:34] VITALS: BMI 16.7
[2021-02-24] MEDS ORDERED: Gentamicin 80 MG/2 ML VIAL ONE (06:37)
[2021-02-24] MEDS ORDERED: CEFAZOLIN 1 GM VIAL ONE (06:37)
[2021-02-24] MEDS ORDERED: Lidocaine 1% (PF) 30 ML VIAL ONE (06:37)
[2021-02-24] MEDS ORDERED: Fentanyl 100 MCG/2 ML VIAL ONE ×2 (07:12→09:44)
[2021-02-24] MEDS ORDERED: Propofol 1,000 MG/100 ML VIAL IV ONE (07:13)
[2021-02-24] MEDS ORDERED: Midazolam HCl 2 mg/2 ml Vial ONE ×2 (07:13→07:58)
[2021-02-24] MEDS ORDERED: Lidocaine 1% PF 5 ML VIAL ONE (07:42)
[2021-02-24] MEDS ORDERED: PROPOFOL 200 MG/20 ML VIAL ONE (07:42)
[2021-02-24] MEDS ORDERED: PHENYLEPHRINE-NS 100 MCG/ML 10 ML SYRINGE ONE (07:42)
[2021-02-24] MEDS ORDERED: HYDROcodone/Acetaminophen 5/325 mg Tablet ONE (12:47)
[2021-02-24] MEDS ORDERED: Iopamidol 370 76% 50 ML VIAL FS ONE (12:48)
== END 2021-02-24 13:10 | disposition home or self-care (01) ==
LOC: SDC 06:08
PROVIDERS: ATTEND Internal Medicine Cardiovascular Disease
PROC: 02HK3KZ Insertion of Defibrillator Lead into Right Ventricle, Percutaneous Approach (ICD-10-PCS; principal; 2021-02-24)
PROC: 0JH608Z Insertion of Defibrillator Generator into Chest Subcutaneous Tissue and Fascia, Open Approach (ICD-10-PCS; principal; 2021-02-24)
DX: I42.8 Other cardiomyopathies (principal); I11.0 Hypertensive heart disease with heart failure; I50.22 Chronic systolic (congestive) heart failure; F10.10 Alcohol abuse, uncomplicated; F14.11 Cocaine abuse, in remission; Z79.899 Other long term (current) drug therapy
CPT/HCPCS: 33249; 36005; 71045; 75820; 76942; 93641; C1777; J0690; J1580; J2001; J2250; J2704; J3010; Q9967

== ENCOUNTER 2021-08-22 12:50 | Inpatient (IN) | payer OTHER, SELFPAY ==
[2021-08-22 14:41] LABS: #Basophils 0.1 thou/uL (0.0-0.2); #Lymphocytes 1.1 thou/uL (1.20-3.40); #Monocytes 0.3 thou/uL (0.11-0.59); #Neutrophils 2.1 thou/uL (1.40-6.50); %Basophils 1.9 % (0.0-1.0); %Eosinophils 0.8 % (0.0-10.0); %Lymphocytes 31.6 % (21.0-51.0); %Monocytes 7.3 % (0.0-10.0); %Neutrophils 58.3 % (42.0-75.0); Hemoglobin 12.9 g/dL (14.0-18.0); Mean Corpuscular HGB CONC 34.7 g/dL (32.0-36.0); Mean Corpuscular Hemoglobin 32.2 pg (27.0-31.0); Mean Corpuscular Volume 92.9 fL (78.0-98.0); Mean Platelet Volume 8.4 fL (7.4-10.4); Platelet Count 66 thou/uL (130-400); RBC Distribution Width 12.3 % (11.5-14.5); Red Blood Cell (RBC) Count 3.99 mill/uL (4.70-6.10); White Blood Cell (WBC) Count 3.6 thou/uL (4.8-10.8)
[2021-08-22 14:54] LABS: ALT (SGPT) 45 U/L (8-55); AST (SGOT) 121 U/L (5-34); Albumin 3.6 g/dL (3.5-5.0); Alkaline Phosphatase 116 U/L (40-110); Anion Gap 14 mmol/L (10-20); BUN (Urea Nitrogen) 4 mg/dL (8.9-20.6); Bilirubin, Total 0.5 mg/dL (0.2-1.2); Calc. Creatinine Clearance 0 mL/min (70-130); Calcium 8.7 mg/dL (7.8-10.44); Carbon Dioxide 29 mmol/L (22-29); Chloride 104 mmol/L (98-107); Globulin 3.7 g/dL (2.4-3.5); Glucose 89 mg/dL (70-105); Potassium 3.5 mmol/L (3.5-5.1); Protein, Total 7.3 g/dL (6.0-8.3); Sodium 143 mmol/L (136-145)
[2021-08-22] MEDS ORDERED: Potassium Chloride 20 MEQ TAB ONE ×2 (15:59→16:46)
[2021-08-22] MEDS ORDERED: Guaifenesin DM 100-10/5 ML UDCUP PO PRN (18:17)
[2021-08-22] MEDS ORDERED: Acetaminophen 325 MG TAB PO PRN (18:17)
[2021-08-22] MEDS ORDERED: Senokot S 8.6-50 MG TAB PO PRN (18:17)
[2021-08-22] MEDS ORDERED: Bisacodyl 10 MG SUPP PR PRN (18:17)
[2021-08-22] MEDS ORDERED: Calcium Carbonate 500 MG ChewTAB PO PRN (18:17)
[2021-08-22] MEDS: Amiodarone 450 MG in Dextrose 5% in Water 250 ML IVPB SCH (20:57)
[2021-08-23] MEDS: Amiodarone 450 MG in Dextrose 5% in Water 250 ML IVPB SCH (05:34)
[2021-08-23 07:53] LABS: #Lymphocytes 1.1 thou/uL (1.20-3.40); #Monocytes 0.4 thou/uL (0.11-0.59); #Neutrophils 2.2 thou/uL (1.40-6.50); %Basophils 0.9 % (0.0-1.0); %Eosinophils 1.1 % (0.0-10.0); %Lymphocytes 29.3 % (21.0-51.0); %Monocytes 10.7 % (0.0-10.0); Hemoglobin 13.4 g/dL (14.0-18.0); Mean Corpuscular HGB CONC 33.5 g/dL (32.0-36.0); Mean Corpuscular Hemoglobin 30.8 pg (27.0-31.0); Mean Corpuscular Volume 91.7 fL (78.0-98.0); Mean Platelet Volume 9.2 fL (7.4-10.4); Platelet Count 63 thou/uL (130-400); RBC Distribution Width 12.2 % (11.5-14.5); Red Blood Cell (RBC) Count 4.37 mill/uL (4.70-6.10); White Blood Cell (WBC) Count 3.8 thou/uL (4.8-10.8)
[2021-08-23] MEDS ORDERED: Carvedilol 3.125 MG TAB PO SCH (08:00)
[2021-08-23 08:05] LABS: Anion Gap 14 mmol/L (10-20); BUN (Urea Nitrogen) 4 mg/dL (8.9-20.6); Calc. Creatinine Clearance 0 mL/min (70-130); Calcium 8.8 mg/dL (7.8-10.44); Carbon Dioxide 27 mmol/L (22-29); Chloride 103 mmol/L (98-107); Glucose 95 mg/dL (70-105); Potassium 3.5 mmol/L (3.5-5.1); Sodium 140 mmol/L (136-145)
[2021-08-23] MEDS: Ferrous Gluconate 324 MG TAB PO SCH ×2 (08:57→16:08)
[2021-08-23] MEDS ORDERED: Enoxaparin Sodium 30 MG/0.3 ML SYRINGE ONE (09:20)
[2021-08-23] MEDS ORDERED: Folic Acid 1 MG TAB ONE (09:22)
[2021-08-23] MEDS ORDERED: Thiamine 100 MG TAB ONE ×2 (09:23→09:28)
[2021-08-23] MEDS ORDERED: Ascorbic Acid 500 mg Chewable Tablet ONE (09:23)
[2021-08-23] MEDS ORDERED: Multivitamin W/ Minerals 1 TAB ONE (09:28)
[2021-08-23] MEDS: Enoxaparin Sodium 30 MG/0.3 ML SYRINGE SC SCH (10:24)
[2021-08-23] MEDS: Folic Acid 1 MG TAB PO SCH (10:25)
[2021-08-23] MEDS: Multivitamin W/ Minerals 1 TAB PO SCH (10:25)
[2021-08-23] MEDS: Thiamine 100 MG TAB PO SCH (10:26)
[2021-08-23] MEDS ORDERED: Furosemide 20 MG TAB PO SCH (11:00)
[2021-08-23] MEDS ORDERED: Mag-Al 1200 mg/1200 mg/30 ML UDCUP ONE (11:09)
[2021-08-23] MEDS ORDERED: Potassium Chloride 20 MEQ TAB PO SCH (11:15)
[2021-08-23] MEDS ORDERED: Amiodarone 200 MG TAB PO SCH ×2 (11:15→21:00)
[2021-08-23 13:54] VITALS: BMI 18.1
[2021-08-23] MEDS: Furosemide 20 MG TAB PO SCH (15:48)
[2021-08-23 16:22] LABS: Amphetamine Not Detected (NotDetected); Barbiturates Screen Not Detected (NotDetected); Benzodiazepine Screen Not Detected (NotDetected); Cocaine Metabolite Screen Not Detected (NotDetected); Methadone Not Detected (NotDetected); Methamphetamine Not Detected (NotDetected); Opiate Screen Not Detected (NotDetected); Oxycodone Screen Not Detected (NotDetected); Phencyclidine (PCP) Not Detected (NotDetected); THC/Cannabinoid Screen Not Detected (NotDetected); Tricyclic Screen Not Detected (NotDetected)
[2021-08-23] MEDS ORDERED: Carvedilol 6.25 MG TAB PO SCH (17:00)
[2021-08-23] MEDS: Sotalol HCl 80 MG TAB PO SCH (20:14)
[2021-08-24 05:23] LABS: #Eosinphils 0.1 thou/uL (0.0-0.7); #Lymphocytes 1.2 thou/uL (1.20-3.40); #Monocytes 0.6 thou/uL (0.11-0.59); #Neutrophils 2.2 thou/uL (1.40-6.50); %Basophils 0.8 % (0.0-1.0); %Eosinophils 1.9 % (0.0-10.0); %Monocytes 14.9 % (0.0-10.0); %Neutrophils 53.4 % (42.0-75.0); Hemoglobin 14.3 g/dL (14.0-18.0); Mean Corpuscular HGB CONC 32.2 g/dL (32.0-36.0); Mean Corpuscular Hemoglobin 29.9 pg (27.0-31.0); Mean Corpuscular Volume 92.9 fL (78.0-98.0); Mean Platelet Volume 9.1 fL (7.4-10.4); Platelet Count 69 thou/uL (130-400); RBC Distribution Width 12.2 % (11.5-14.5); Red Blood Cell (RBC) Count 4.78 mill/uL (4.70-6.10); White Blood Cell (WBC) Count 4.1 thou/uL (4.8-10.8)
[2021-08-24 05:38] LABS: Anion Gap 14 mmol/L (10-20); BUN (Urea Nitrogen) 7 mg/dL (8.9-20.6); Calc. Creatinine Clearance 102 mL/min (70-130); Calcium 8.8 mg/dL (7.8-10.44); Carbon Dioxide 26 mmol/L (22-29); Chloride 101 mmol/L (98-107); Glucose 102 mg/dL (70-105); Potassium 3.5 mmol/L (3.5-5.1); Sodium 137 mmol/L (136-145)
[2021-08-24] MEDS: Ferrous Gluconate 324 MG TAB PO SCH ×2 (08:57→16:30)
[2021-08-24] MEDS: Sotalol HCl 80 MG TAB PO SCH ×2 (08:57→20:08)
[2021-08-24] MEDS: Furosemide 20 MG TAB PO SCH ×2 (08:57→15:01)
[2021-08-24] MEDS: Thiamine 100 MG TAB PO SCH (08:57)
[2021-08-24] MEDS: Potassium Chloride 20 MEQ TAB PO SCH (08:57)
[2021-08-24] MEDS: Folic Acid 1 MG TAB PO SCH (08:57)
[2021-08-24] MEDS: Multivitamin W/ Minerals 1 TAB PO SCH (08:57)
[2021-08-24] MEDS: Enoxaparin Sodium 30 MG/0.3 ML SYRINGE SC SCH (09:57)
[2021-08-25 05:39] LABS: #Eosinphils 0.1 thou/uL (0.0-0.7); #Lymphocytes 1.5 thou/uL (1.20-3.40); #Monocytes 0.6 thou/uL (0.11-0.59); %Basophils 0.4 % (0.0-1.0); %Eosinophils 2.4 % (0.0-10.0); %Lymphocytes 35.4 % (21.0-51.0); %Monocytes 13.8 % (0.0-10.0); %Neutrophils 48.1 % (42.0-75.0); Mean Corpuscular HGB CONC 33.1 g/dL (32.0-36.0); Mean Corpuscular Hemoglobin 30.8 pg (27.0-31.0); Mean Corpuscular Volume 92.8 fL (78.0-98.0); Mean Platelet Volume 9.2 fL (7.4-10.4); Platelet Count 81 thou/uL (130-400); RBC Distribution Width 12.1 % (11.5-14.5); Red Blood Cell (RBC) Count 4.24 mill/uL (4.70-6.10); White Blood Cell (WBC) Count 4.1 thou/uL (4.8-10.8)
[2021-08-25 05:47] LABS: Anion Gap 14 mmol/L (10-20); BUN (Urea Nitrogen) 10 mg/dL (8.9-20.6); Calc. Creatinine Clearance 102 mL/min (70-130); Calcium 9.3 mg/dL (7.8-10.44); Carbon Dioxide 26 mmol/L (22-29); Chloride 101 mmol/L (98-107); Glucose 112 mg/dL (70-105); Potassium 3.6 mmol/L (3.5-5.1); Sodium 137 mmol/L (136-145)
[2021-08-25] MEDS: Sotalol HCl 80 MG TAB PO SCH (08:51)
[2021-08-25] MEDS: Thiamine 100 MG TAB PO SCH (08:51)
[2021-08-25] MEDS: Folic Acid 1 MG TAB PO SCH (08:51)
[2021-08-25] MEDS: Multivitamin W/ Minerals 1 TAB PO SCH (08:51)
[2021-08-25] MEDS: Potassium Chloride 20 MEQ TAB PO SCH (08:52)
[2021-08-25] MEDS: Furosemide 20 MG TAB PO SCH (08:52)
[2021-08-25] MEDS: Ferrous Gluconate 324 MG TAB PO SCH (08:52)
[2021-08-25 08:57] LABS: ALT (SGPT) 46 U/L (8-55); AST (SGOT) 89 U/L (5-34); Albumin 3.5 g/dL (3.5-5.0); Alkaline Phosphatase 121 U/L (40-110); Bilirubin, Direct 0.3 mg/dL (0.1-0.3); Bilirubin, Total 0.6 mg/dL (0.2-1.2); Protein, Total 6.9 g/dL (6.0-8.3)
[2021-08-25 12:26] VITALS: BP 125/79; TEMP 97.7
== END 2021-08-25 13:09 | disposition home or self-care (01) | DRG 309 ==
LOC: ERS 12:50 → ERHOLD 18:13 → 2SE 08-23 11:08
PROVIDERS: ADMIT Internal Medicine; ATTEND Internal Medicine
PROC: 4B02XTZ Measurement of Cardiac Defibrillator, External Approach (ICD-10-PCS; principal; 2021-08-22)
DX: I48.0 Paroxysmal atrial fibrillation (principal); I50.22 Chronic systolic (congestive) heart failure; I49.01 Ventricular fibrillation; I42.8 Other cardiomyopathies; I11.0 Hypertensive heart disease with heart failure; F10.10 Alcohol abuse, uncomplicated; R74.01 Elevation of levels of liver transaminase levels; D72.819 Decreased white blood cell count, unspecified; I25.10 Atherosclerotic heart disease of native coronary artery without angina pectoris; K21.9 Gastro-esophageal reflux disease without esophagitis; E78.00 Pure hypercholesterolemia, unspecified; E78.5 Hyperlipidemia, unspecified; D69.6 Thrombocytopenia, unspecified; Z79.899 Other long term (current) drug therapy; Z79.82 Long term (current) use of aspirin; Z87.11 Personal history of peptic ulcer disease; Z59.00 Homelessness unspecified
CPT/HCPCS: 36415; 71045; 76705; 80048; 80053; 80076; 80306; 84484; 85025; 93005; 93010; J0282; J1650; J7070

== ENCOUNTER 2021-11-27 03:12 | Emergency (ER) | payer SELFPAY | END 2021-11-27 07:18 | disposition home or self-care (01) | LOC: ERS 03:12 | DX: S09.90XA Unspecified injury of head, initial encounter (principal); W19.XXXA Unspecified fall, initial encounter; D64.9 Anemia, unspecified; I25.10 Atherosclerotic heart disease of native coronary artery without angina pectoris | CPT/HCPCS: 70450; 72125 ==

== ENCOUNTER 2022-07-12 15:35 | Inpatient (IN) | payer SELFPAY ==
[2022-07-12 16:20] LABS: #Eosinphils 0.1 thou/uL (0.0-0.7); #Lymphocytes 0.9 thou/uL (1.20-3.40); #Monocytes 0.4 thou/uL (0.11-0.59); #Neutrophils 2.9 thou/uL (1.40-6.50); %Basophils 0.8 % (0.0-1.0); %Eosinophils 1.2 % (0.0-10.0); %Lymphocytes 21.4 % (21.0-51.0); %Monocytes 9.9 % (0.0-10.0); %Neutrophils 66.7 % (42.0-75.0); Hemoglobin 15.5 g/dL (14.0-18.0); Mean Corpuscular HGB CONC 34.2 g/dL (32.0-36.0); Mean Corpuscular Volume 96.7 fL (78.0-98.0); Mean Platelet Volume 8.5 fL (7.4-10.4); Platelet Count 122 thou/uL (130-400); RBC Distribution Width 12.2 % (11.5-14.5); Red Blood Cell (RBC) Count 4.68 mill/uL (4.70-6.10); White Blood Cell (WBC) Count 4.4 thou/uL (4.8-10.8)
[2022-07-12 16:42] LABS: ALT (SGPT) 36 U/L (8-55); AST (SGOT) 76 U/L (5-34); Albumin 4.1 g/dL (3.5-5.0); Alkaline Phosphatase 84 U/L (40-110); Anion Gap 18 mmol/L (10-20); BUN (Urea Nitrogen) 5 mg/dL (8.9-20.6); Bilirubin, Total 1.6 mg/dL (0.2-1.2); Calc. Creatinine Clearance 0 mL/min (70-130); Calcium 9.5 mg/dL (7.8-10.44); Carbon Dioxide 24 mmol/L (22-29); Chloride 99 mmol/L (98-107); Estimated GFR 111; Globulin 3.7 g/dL (2.4-3.5); Glucose 123 mg/dL (70-105); Potassium 3.9 mmol/L (3.5-5.1); Protein, Total 7.8 g/dL (6.0-8.3); Sodium 137 mmol/L (136-145)
[2022-07-12 16:49] LABS: CK (CPK) 95 U/L (30-200); CRP (Inflammatory) Less than 0.50 mg/dL (= or < 0.5)
[2022-07-12 16:59] LABS: Bilirubin Negative (Negative); Blood, Urine Negative (Negative); Clarity Clear (Clear); Glucose, Urine (Dipstick) Normal (Negative); Ketone, Urine Negative (Negative); Leukocyte Negative Leu/uL (Negative); Nitrite Negative (Negative); Protein, Urine (Dipstick) Negative (Neg-Trace); Specific Gravity, Urine 1.007 (1.002-1.036); Urobilinogen Normal mg/dL (Less than 2)
[2022-07-12 17:12] LABS: CKMB 2.5 ng/mL (0-6.6)
[2022-07-12 18:11] LABS: Magnesium 1.4 mg/dL (1.6-2.6)
[2022-07-12 18:13] LABS: Amphetamine Not Detected (NotDetected); Barbiturates Screen Not Detected (NotDetected); Benzodiazepine Screen Not Detected (NotDetected); Cocaine Metabolite Screen Not Detected (NotDetected); Methadone Not Detected (NotDetected); Methamphetamine Not Detected (NotDetected); Opiate Screen Not Detected (NotDetected); Oxycodone Screen Not Detected (NotDetected); Phencyclidine (PCP) Not Detected (NotDetected); THC/Cannabinoid Screen Not Detected (NotDetected); Tricyclic Screen Not Detected (NotDetected)
[2022-07-12] MEDS ORDERED: Magnesium 2 GM/50 ML BAG (IN WATER) ONE (19:16)
[2022-07-12] MEDS ORDERED: Aspirin 325 MG TAB ONE (19:16)
[2022-07-12] MEDS ORDERED: Ondansetron PF 4 MG/2 ML Vial IVP PRN (19:23)
[2022-07-12] MEDS ORDERED: Lorazepam 1 MG TAB PO PRN (19:23)
[2022-07-12] MEDS ORDERED: Acetaminophen 325 MG TAB PO PRN (19:23)
[2022-07-12] MEDS ORDERED: Ondansetron ODT 4 MG TAB PO PRN ×2 (19:23)
[2022-07-12] MEDS ORDERED: Electrolyte Replacement Protocol 1 EACH FS SCH (19:30)
[2022-07-12] MEDS ORDERED: Multivit, Therapeutic 1 TAB PO SCH (19:45)
[2022-07-12] MEDS ORDERED: Folic Acid 1 MG TAB PO SCH (19:45)
[2022-07-12 20:34] LABS: #Lymphocytes 1.1 thou/uL (1.20-3.40); #Monocytes 0.5 thou/uL (0.11-0.59); #Neutrophils 2.3 thou/uL (1.40-6.50); %Basophils 0.6 % (0.0-1.0); %Eosinophils 1.2 % (0.0-10.0); %Lymphocytes 27.6 % (21.0-51.0); %Monocytes 11.5 % (0.0-10.0); Hemoglobin 14.9 g/dL (14.0-18.0); Mean Corpuscular HGB CONC 33.4 g/dL (32.0-36.0); Mean Corpuscular Hemoglobin 32.5 pg (27.0-31.0); Mean Corpuscular Volume 97.2 fL (78.0-98.0); Mean Platelet Volume 8.4 fL (7.4-10.4); Platelet Count 119 thou/uL (130-400); RBC Distribution Width 12.1 % (11.5-14.5); Red Blood Cell (RBC) Count 4.59 mill/uL (4.70-6.10); White Blood Cell (WBC) Count 3.9 thou/uL (4.8-10.8)
[2022-07-12 20:56] LABS: ALT (SGPT) 30 U/L (8-55); AST (SGOT) 67 U/L (5-34); Albumin 3.9 g/dL (3.5-5.0); Alkaline Phosphatase 82 U/L (40-110); Anion Gap 14 mmol/L (10-20); BUN (Urea Nitrogen) 4 mg/dL (8.9-20.6); Bilirubin, Direct 0.5 mg/dL (0.1-0.3); Bilirubin, Total 1.5 mg/dL (0.2-1.2); Calc. Creatinine Clearance 0 mL/min (70-130); Calcium 9.3 mg/dL (7.8-10.44); Carbon Dioxide 28 mmol/L (22-29); Chloride 96 mmol/L (98-107); Estimated GFR 114; Globulin 3.7 g/dL (2.4-3.5); Glucose 142 mg/dL (70-105); Phosphorus 2.4 mg/dL (2.3-4.7); Potassium 3.3 mmol/L (3.5-5.1); Protein, Total 7.6 g/dL (6.0-8.3); Sodium 135 mmol/L (136-145)
[2022-07-12 20:58] LABS: Troponin I 0.108 ng/mL (< 0.028)
[2022-07-12 21:07] VITALS: BMI 19.1
[2022-07-12] MEDS: Lorazepam 1 MG TAB PO SCH (21:27)
[2022-07-12] MEDS: Thiamine HCl 200 MG/2 ML VIAL SLOW IVP SCH (21:27)
[2022-07-13 00:30] LABS: Magnesium 1.5 mg/dL (1.6-2.6)
[2022-07-13] MEDS ORDERED: Magnesium 2 GM/50 ML(in water) 2 GM in Premix Bag 1 BAG IVPB SCH (00:45)
[2022-07-13] MEDS ORDERED: Magnesium Sulfate 2 GM in Sodium Chloride 0.9% 250 ML 250 ML IVPB SCH (00:45)
[2022-07-13] MEDS: Lorazepam 1 MG TAB PO SCH ×4 (00:54→20:43)
[2022-07-13] MEDS ORDERED: Potassium Chloride 20 MEQ TAB PO SCH ×2 (03:15→09:00)
[2022-07-13 04:35] LABS: #Basophils 0.1 thou/uL (0.0-0.2); #Eosinphils 0.1 thou/uL (0.0-0.7); #Lymphocytes 1.3 thou/uL (1.20-3.40); #Monocytes 0.6 thou/uL (0.11-0.59); #Neutrophils 2.3 thou/uL (1.40-6.50); %Basophils 1.3 % (0.0-1.0); %Eosinophils 2.2 % (0.0-10.0); %Lymphocytes 30.4 % (21.0-51.0); %Monocytes 14.3 % (0.0-10.0); %Neutrophils 51.8 % (42.0-75.0); Hemoglobin 14.1 g/dL (14.0-18.0); Mean Corpuscular HGB CONC 34.7 g/dL (32.0-36.0); Mean Corpuscular Hemoglobin 33.7 pg (27.0-31.0); Mean Corpuscular Volume 97.1 fL (78.0-98.0); Mean Platelet Volume 8.7 fL (7.4-10.4); Platelet Count 109 thou/uL (130-400); RBC Distribution Width 11.9 % (11.5-14.5); Red Blood Cell (RBC) Count 4.17 mill/uL (4.70-6.10); White Blood Cell (WBC) Count 4.4 thou/uL (4.8-10.8)
[2022-07-13 04:38] LABS: Potassium 3.8 mmol/L (3.5-5.1)
[2022-07-13 04:48] LABS: Troponin I 0.081 ng/mL (< 0.028)
[2022-07-13] MEDS ORDERED: Enoxaparin Sodium 30 MG/0.3 ML SYRINGE SC SCH (09:00)
[2022-07-13 10:05] LABS: Campy jejuni + coli by PCR Negative (Negative); STEC Shiga Toxin 1+2 Negative (Negative); Salmonella spp. by PCR Negative (Negative); Shigella spp + EIEC by PCR Negative (Negative)
[2022-07-13] MEDS: Multivit, Therapeutic 1 TAB PO SCH (10:06)
[2022-07-13] MEDS: Aspirin Chewable 81 MG TAB PO SCH (10:07)
[2022-07-13] MEDS: Folic Acid 1 MG TAB PO SCH (10:07)
[2022-07-13 11:25] LABS: Syphilis Antibody Nonreactive (Nonreactive); Syphilis Antibody Index 0.04 S/CO (<1.00 Non-Reactive)
[2022-07-13 11:46] LABS: Anion Gap 17 mmol/L (10-20); BUN (Urea Nitrogen) 7 mg/dL (8.9-20.6); Calc. Creatinine Clearance 98 mL/min (70-130); Calcium 9.8 mg/dL (7.8-10.44); Carbon Dioxide 27 mmol/L (22-29); Chloride 99 mmol/L (98-107); Estimated GFR 109; Glucose 102 mg/dL (70-105); Magnesium 1.9 mg/dL (1.6-2.6); Potassium 3.9 mmol/L (3.5-5.1); Sodium 139 mmol/L (136-145)
[2022-07-13] MEDS ORDERED: Lorazepam 1 MG TAB PO PRN (19:23)
[2022-07-13] MEDS: Thiamine HCl 200 MG/2 ML VIAL SLOW IVP SCH (20:43)
[2022-07-14] MEDS: Lorazepam 1 MG TAB PO SCH ×3 (02:34→13:21)
[2022-07-14 05:02] LABS: #Eosinphils 0.1 thou/uL (0.0-0.7); #Lymphocytes 1.3 thou/uL (1.20-3.40); #Monocytes 0.6 thou/uL (0.11-0.59); #Neutrophils 1.9 thou/uL (1.40-6.50); %Basophils 1.2 % (0.0-1.0); %Eosinophils 1.9 % (0.0-10.0); %Lymphocytes 34.3 % (21.0-51.0); %Monocytes 14.3 % (0.0-10.0); %Neutrophils 48.3 % (42.0-75.0); Hemoglobin 12.3 g/dL (14.0-18.0); Mean Corpuscular HGB CONC 31.7 g/dL (32.0-36.0); Mean Corpuscular Hemoglobin 31.3 pg (27.0-31.0); Mean Corpuscular Volume 98.6 fL (78.0-98.0); Mean Platelet Volume 9.1 fL (7.4-10.4); Platelet Count 96 thou/uL (130-400); RBC Distribution Width 11.9 % (11.5-14.5); Red Blood Cell (RBC) Count 3.93 mill/uL (4.70-6.10); White Blood Cell (WBC) Count 3.9 thou/uL (4.8-10.8)
[2022-07-14 05:17] LABS: ALT (SGPT) 40 U/L (8-55); AST (SGOT) 77 U/L (5-34); Albumin 3.5 g/dL (3.5-5.0); Alkaline Phosphatase 75 U/L (40-110); Anion Gap 12 mmol/L (10-20); BUN (Urea Nitrogen) 11 mg/dL (8.9-20.6); Bilirubin, Total 0.4 mg/dL (0.2-1.2); Calc. Creatinine Clearance 101 mL/min (70-130); Calcium 9.6 mg/dL (7.8-10.44); Carbon Dioxide 28 mmol/L (22-29); Chloride 103 mmol/L (98-107); Estimated GFR 110; Globulin 3.2 g/dL (2.4-3.5); Glucose 109 mg/dL (70-105); Magnesium 1.5 mg/dL (1.6-2.6); Phosphorus 4.7 mg/dL (2.3-4.7); Potassium 3.9 mmol/L (3.5-5.1); Protein, Total 6.7 g/dL (6.0-8.3); Sodium 139 mmol/L (136-145)
[2022-07-14] MEDS ORDERED: Magnesium 2 GM/50 ML(in water) 2 GM in Premix Bag 1 BAG IVPB SCH (08:00)
[2022-07-14] MEDS: Folic Acid 1 MG TAB PO SCH (08:02)
[2022-07-14] MEDS: Enoxaparin Sodium 40 MG/0.4 ML SYRINGE SC SCH (08:02)
[2022-07-14] MEDS: Multivit, Therapeutic 1 TAB PO SCH (08:02)
[2022-07-14] MEDS: Aspirin Chewable 81 MG TAB PO SCH (08:02)
[2022-07-14] MEDS ORDERED: Lorazepam 1 MG TAB PO PRN (19:23)
[2022-07-14] MEDS: Thiamine HCl 200 MG/2 ML VIAL SLOW IVP SCH (20:59)
[2022-07-14] MEDS: Lorazepam 0.5 MG TAB PO SCH (21:02)
[2022-07-15] MEDS: Lorazepam 0.5 MG TAB PO SCH ×3 (03:15→13:25)
[2022-07-15 05:15] LABS: #Eosinphils 0.1 thou/uL (0.0-0.7); #Lymphocytes 1.3 thou/uL (1.20-3.40); #Monocytes 0.6 thou/uL (0.11-0.59); #Neutrophils 1.9 thou/uL (1.40-6.50); %Basophils 0.8 % (0.0-1.0); %Lymphocytes 34.2 % (21.0-51.0); %Monocytes 14.6 % (0.0-10.0); %Neutrophils 48.4 % (42.0-75.0); Hemoglobin 12.2 g/dL (14.0-18.0); Mean Corpuscular HGB CONC 33.1 g/dL (32.0-36.0); Mean Corpuscular Hemoglobin 32.7 pg (27.0-31.0); Mean Corpuscular Volume 98.9 fL (78.0-98.0); Mean Platelet Volume 9.2 fL (7.4-10.4); Platelet Count 91 thou/uL (130-400); RBC Distribution Width 12.2 % (11.5-14.5); Red Blood Cell (RBC) Count 3.72 mill/uL (4.70-6.10); White Blood Cell (WBC) Count 3.9 thou/uL (4.8-10.8)
[2022-07-15 05:24] LABS: Anion Gap 12 mmol/L (10-20); BUN (Urea Nitrogen) 10 mg/dL (8.9-20.6); Calc. Creatinine Clearance 112 mL/min (70-130); Calcium 8.9 mg/dL (7.8-10.44); Carbon Dioxide 24 mmol/L (22-29); Chloride 107 mmol/L (98-107); Estimated GFR 113; Glucose 100 mg/dL (70-105); Magnesium 1.5 mg/dL (1.6-2.6); Potassium 3.8 mmol/L (3.5-5.1); Sodium 139 mmol/L (136-145)
[2022-07-15] MEDS: Folic Acid 1 MG TAB PO SCH (07:43)
[2022-07-15] MEDS: Multivit, Therapeutic 1 TAB PO SCH (07:43)
[2022-07-15] MEDS: Aspirin Chewable 81 MG TAB PO SCH (07:43)
[2022-07-15] MEDS: Enoxaparin Sodium 40 MG/0.4 ML SYRINGE SC SCH (07:44)
[2022-07-15] MEDS ORDERED: Magnesium 2 GM/50 ML(in water) 2 GM in Premix Bag 1 BAG IVPB SCH (08:00)
[2022-07-15 13:57] LABS: Anion Gap 14 mmol/L (10-20); BUN (Urea Nitrogen) 9 mg/dL (8.9-20.6); Calc. Creatinine Clearance 112 mL/min (70-130); Calcium 9.1 mg/dL (7.8-10.44); Carbon Dioxide 29 mmol/L (22-29); Chloride 102 mmol/L (98-107); Estimated GFR 113; Glucose 96 mg/dL (70-105); Magnesium 1.7 mg/dL (1.6-2.6); Potassium 3.8 mmol/L (3.5-5.1); Sodium 141 mmol/L (136-145)
[2022-07-15 16:37] VITALS: BP 135/101; TEMP 97.9
[2022-07-15] MEDS ORDERED: Carvedilol 6.25 MG TAB PO SCH (17:00)
[2022-07-15] MEDS ORDERED: Lorazepam 0.5 MG TAB PO PRN (19:23)
[2022-07-15] MEDS ORDERED: Thiamine 100 MG TAB PO SCH (21:00)
== END 2022-07-15 19:30 | disposition home or self-care (01) | DRG 309 ==
LOC: ERS 15:35 → 2NO 18:56
PROVIDERS: ADMIT Family Medicine; ATTEND Family Medicine
DX: I47.2 Ventricular tachycardia (principal); I42.8 Other cardiomyopathies; I50.22 Chronic systolic (congestive) heart failure; Z20.822 Contact with and (suspected) exposure to COVID-19; E83.42 Hypomagnesemia; R19.7 Diarrhea, unspecified; I11.0 Hypertensive heart disease with heart failure; I48.0 Paroxysmal atrial fibrillation; E87.6 Hypokalemia; F10.20 Alcohol dependence, uncomplicated; E78.5 Hyperlipidemia, unspecified; Z95.810 Presence of automatic (implantable) cardiac defibrillator; Z87.891 Personal history of nicotine dependence; Z79.899 Other long term (current) drug therapy
CPT/HCPCS: 36415; 71045; 80048; 80053; 80306; 81003; 82248; 82550; 82553; 83605; 83735; 83880; 84100; 84132; 84484; 85025; 86140; 86780; 87324; 87449; 87505; 93005; 93010; 93306; 94760; J1650; J3411; J3475; U0003; U0005

== ENCOUNTER 2022-09-11 18:27 | Emergency (ER) | payer OTHER, SELFPAY ==
[2022-09-11 19:06] LABS: Bilirubin Negative (Negative); Blood, Urine Negative (Negative); Clarity Clear (Clear); Glucose, Urine (Dipstick) Normal (Negative); Ketone, Urine Negative (Negative); Leukocyte Negative Leu/uL (Negative); Nitrite Negative (Negative); Protein, Urine (Dipstick) Negative (Neg-Trace); Specific Gravity, Urine 1.004 (1.002-1.036); Urobilinogen Normal mg/dL (Less than 2); pH, Urine 6.5 (5.0-9.0)
[2022-09-11 19:16] LABS: Amphetamine Not Detected (NotDetected); Barbiturates Screen Not Detected (NotDetected); Benzodiazepine Screen Not Detected (NotDetected); Cocaine Metabolite Screen Not Detected (NotDetected); Methadone Not Detected (NotDetected); Methamphetamine Not Detected (NotDetected); Opiate Screen Not Detected (NotDetected); Oxycodone Screen Not Detected (NotDetected); Phencyclidine (PCP) Not Detected (NotDetected); THC/Cannabinoid Screen Not Detected (NotDetected); Tricyclic Screen Not Detected (NotDetected)
[2022-09-11 19:21] LABS: Hemoglobin 14.3 g/dL (14.0-18.0); Mean Corpuscular HGB CONC 32.6 g/dL (32.0-36.0); Mean Corpuscular Hemoglobin 30.8 pg (27.0-31.0); Mean Corpuscular Volume 94.5 fl (78.0-98.0); Mean Platelet Volume 8.2 fL (7.4-10.4); Platelet Count 156 thou/uL (130-400); RBC Distribution Width 13.3 % (11.5-14.5); Red Blood Cell (RBC) Count 4.62 mill/uL (4.70-6.10); White Blood Cell (WBC) Count 4.7 thou/uL (4.8-10.8)
[2022-09-11 19:31] LABS: Acetaminophen Less than 10.0 mcg/mL (10.0-30.0); Alcohol 252 mg/dL (Less than 10); Lipase 54 U/L (8-78); Salicylate Less than 8.0 mg/dL (15.0-30.0)
[2022-09-11 19:33] LABS: ALT (SGPT) 51 U/L (8-55); AST (SGOT) 111 U/L (5-34); Albumin 4.4 g/dL (3.5-5.0); Alkaline Phosphatase 82 U/L (40-110); Anion Gap 17 mmol/L (10-20); BUN (Urea Nitrogen) 5 mg/dL (8.9-20.6); Bilirubin, Total 0.6 mg/dL (0.2-1.2); Calc. Creatinine Clearance 0 mL/min (70-130); Calcium 8.8 mg/dL (7.8-10.44); Carbon Dioxide 26 mmol/L (22-29); Chloride 101 mmol/L (98-107); Estimated GFR 107; Glucose 95 mg/dL (70-105); Potassium 4.1 mmol/L (3.5-5.1); Protein, Total 8.4 g/dL (6.0-8.3); Sodium 140 mmol/L (136-145)
[2022-09-11 19:44] LABS: Band 1 % (5-11); Lymphocytes 32 % (21-51); MDiff Complete? YES; Monocytes 5 % (0-10); Neutrophil 61 % (42-75); Platelet Morphology Comment Appears Adequate; RBC Morphology Normal; Reactive Lymphocytes 1 % (0-10)
== END 2022-09-11 20:56 | disposition home or self-care (01) ==
LOC: ERS 18:27
DX: R11.0 Nausea (principal); T82.9XXA Unspecified complication of cardiac and vascular prosthetic device, implant and graft, initial encounter; I25.10 Atherosclerotic heart disease of native coronary artery without angina pectoris; Z79.82 Long term (current) use of aspirin; Z79.899 Other long term (current) drug therapy
CPT/HCPCS: 36415; 71045; 80053; 80306; 80307; 81003; 83690; 84484; 85025; 93005

== ENCOUNTER 2023-07-26 00:09 | Emergency (ER) | payer MEDICAID, OTHER ==
[2023-07-26 01:27] LABS: #Eosinphils 0.1 thou/uL (0.0-0.7); #Monocytes 0.4 thou/uL (0.11-0.59); #Neutrophils 1.2 thou/uL (1.40-6.50); %Basophils 0.5 % (0.0-1.0); %Eosinophils 2.9 % (0.0-10.0); %Lymphocytes 59.3 % (21.0-51.0); %Monocytes 8.9 % (0.0-10.0); %Neutrophils 28.2 % (42.0-75.0); Hematocrit 35.1 % (42.0-52.0); Hemoglobin 11.8 g/dL (14.0-18.0); Mean Corpuscular HGB CONC 33.6 g/dL (32.0-36.0); Mean Corpuscular Hemoglobin 30.2 pg (27.0-31.0); Mean Corpuscular Volume 89.8 fl (78.0-98.0); Mean Platelet Volume 9.7 fL (7.4-10.4); Platelet Count 141 10x3/uL (130-400); RBC Distribution Width 13.3 % (11.5-14.5); Red Blood Cell (RBC) Count 3.91 mill/uL (4.70-6.10); White Blood Cell (WBC) Count 4.2 10x3/uL (4.8-10.8)
[2023-07-26 01:50] LABS: ALT (SGPT) 17 U/L (8-55); AST (SGOT) 26 U/L (5-34); Alkaline Phosphatase 74 U/L (40-110); Anion Gap 17 mmol/L (10-20); BUN (Urea Nitrogen) 6 mg/dL (8.9-20.6); Bilirubin, Total 0.5 mg/dL (0.2-1.2); Calc. Creatinine Clearance 0 mL/min (70-130); Carbon Dioxide 25 mmol/L (22-29); Chloride 95 mmol/L (98-107); Estimated GFR 107; Globulin 3.6 g/dL (2.4-3.5); Glucose 92 mg/dL (70-105); Potassium 3.5 mmol/L (3.5-5.1); Protein, Total 7.6 g/dL (6.0-8.3); Sodium 133 mmol/L (136-145)
[2023-07-26 01:54] LABS: Magnesium 1.8 mg/dL (1.6-2.6); Troponin I Less than 0.010 ng/mL (< 0.028)
[2023-07-26 03:41] LABS: Amphetamine Not Detected (NotDetected); Barbiturates Screen Not Detected (NotDetected); Benzodiazepine Screen Not Detected (NotDetected); Cocaine Metabolite Screen Not Detected (NotDetected); Methadone Not Detected (NotDetected); Methamphetamine Not Detected (NotDetected); Opiate Screen Not Detected (NotDetected); Oxycodone Screen Not Detected (NotDetected); Phencyclidine (PCP) Not Detected (NotDetected); THC/Cannabinoid Screen Not Detected (NotDetected); Tricyclic Screen Not Detected (NotDetected)
[2023-07-26 03:42] LABS: Troponin I Less than 0.010 ng/mL (< 0.028)
== END 2023-07-26 04:57 | disposition home or self-care (01) ==
LOC: ERS 00:09
DX: I49.3 Ventricular premature depolarization (principal); F10.10 Alcohol abuse, uncomplicated; Z86.79 Personal history of other diseases of the circulatory system
CPT/HCPCS: 36415; 71045; 80053; 80306; 83735; 83880; 84484; 85025; 93005